=== PATIENT | female | born 1950 | race American Indian/Alaskan Native ===

== ENCOUNTER → 2018-07-10 | Outpatient (CLI) | payer OTHER ==
[~2018-07-10] MED LIST: BENZ0.5T35 PO; DIPH25CA57 PO; DIVA250T4 PO; FLUT1AER IH; LORA2VIA6 IJ; [UNRECOGNIZED DRUG - CODE] MC
[2018-07-10 19:42] LABS: BILIRUBIN,URINE NEGATIVE (NEGATIVE)
[2018-07-10 19:57] LABS: APPEARANCE,URINE CLEAR (CLEAR); UA COLOR AMBER (YELLOW)
== END | disposition home or self-care (01) ==
LOC: LAB 19:02
PROVIDERS: ATTEND Family Medicine
DX: E03.9 Hypothyroidism, unspecified (principal); F25.1 Schizoaffective disorder, depressive type; G20 Parkinson's disease
CPT/HCPCS: 81000; 87086

== ENCOUNTER 2018-07-14 07:26 | Inpatient (IN) | payer MEDICARE, MEDICAID ==
[2018-07-14] VITALS (31 sets, daily range): BP systolic 102–193; BP diastolic 50–116
[~2018-07-14] VITALS: Ht 177.8 cm; Wt 73.9 kg
--- NOTE | 2018-07-14 07:27 | NUR ---
ARRIVAL PT ARRIVED TO ED VIA [facility]. PT AWAKE UPON ARRIVE. PT HAS LONG PSYCH HX, ALONG WITH DEMENTIA. NOT ABLE TO ANSWER QUESTIONS. SPEECH NOT CLEAR. NO RESPIRATORY DISTRESS NOTED. 4X4 DRESSING NOTED TO LACERATION ABOVE RIGHT EYES. DRESSING REMOVED. 2 CM LACERATION NOTED. MINIMAL BLEEDING NOTED AT SITE. ABRASION ASSESSED BEHIND LEFT EAR.
--- NOTE | 2018-07-14 07:39 | ER.PDOC ---
General Chief Complaint: Requesting Medical Care Stated Complaint: FALL Time seen by MD: 07:36 Source: patient Exam Limitations: clinical condition (Dense Dementia) History of Present Illness Initial Comments Patient with dense dementia. custodial patient. Patient with unwitnessed fall, and now with small laceration to forehead. Fdc states that he is more confused than normal. Occurred: this morning Where: longterm Injuries/Pain Location: head Context: Unknown Loss of Consciousness: Unsure Past Medical History Medical History: COPD, parkinson Surgical History: other (unkown) Family History Significant Family History: other (unknown) Social History Smoking: quit greater than 1 year Alcohol Use: none Drug Use: none Reviewed Nursing Reviewed: Vital Signs, Abn. Noted (Tachycardia), Nursing Assessment Review of Systems Constitutional: other (Unable to obtain) Physical Exam Head: Lacerations (small 1.4 cm lac forehead) Eyes: bilateral eye normal inspection, bilateral eye PERRL, bilateral eye EOMI Neck: Non-Tender, Normal Alignment, Normal Inspection Cardiovascular/Respiratory: No JVD, Normal Breath Sounds, Tachycardia, Irregularly Irregular Gastrointestinal: Normal Bowel Sounds, No Organomegaly, No Pulsatile Mass, Non Tender, Soft Back: Normal Inspection, No CVA Tenderness, No Vertebral Tenderness Extremities: No Evidence of Injury, Normal Range of Motion, Non-Tender, No Pedal Edema 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, No Motor/Sensory Deficits, Alert, Normal Mood/Affect, Oriented x 3 Skin: Normal Color, Warm/Dry Keily Coma Score Best Eye Response: (4) Open Spontaneously Best Verbal Response: (2)Incomprehensible Sound Best Motor Response: (5) Localizes to Pain [place] Total: 11 Results/Orders Results/Orders Laboratory Tests Test 07/14/18 07:38 07/14/18 09:24 White Blood Count 9.7 10^3/uL (4.5-11.0) Red Blood Count 5.38 10^6/uL (4.00-5.20) Hemoglobin 16.3 g/dL (12.0-15.0) Hematocrit 49.3 % (36.0-46.0) Mean Corpuscular Volume 91.6 fL (78-100) Mean Corpuscular Hemoglobin 30.3 pg (26-34) Mean Corpuscular Hemoglobin Concent 33.1 g/dL (33-37) Red Cell Distribution Width 14.5 % (11.5-14.5) Platelet Count 109 10^3/uL (150-400) Mean Platelet Volume 10.7 fL (7.8-11.0) Neutrophils (%) (Auto) 66.5 % (41.0-85.0) Lymphocytes (%) (Auto) 14.6 % (24.0-44.0) Monocytes (%) (Auto) 17.4 % (5.0-12.0) Neutrophils # (Auto) 6.4 10^3/uL (1.8-7.7) Lymphocytes # (Auto) 1.4 10^3/uL (1.0-4.8) Monocytes # (Auto) 1.7 10^3/uL (0.3-0.8) Absolute Immature Granulocyte (auto 0.03 10^3 u/L (0-2) Eosinophils % 0.9 % (0.0-5.0) Basophils % 0.3 % (0.0-0.2) Basophils # 0.0 10^3/uL (0.0-0.1) Eosinophil Count 0.1 10^3/uL (0.0-0.2) Prothrombin Time 16.1 SEC (9.8-11.9) Prothrombin Time INR (Non-Therap) 1.6 Activated Partial Thromboplast Time 30.4 SEC (24.67-30.72) Sodium Level 152 mmol/L (132-145) Potassium Level 3.8 mmol/L (3.6-5.2) Chloride Level 111.0 mmol/L (96-109) Carbon Dioxide Level 28.3 mmol/L (20.0-32) Anion Gap 16.5 Blood Urea Nitrogen 48 mg/dL (7-18) Creatinine 1.35 mg/dL (0.59-1.40) Estimated GFR () 47.3 (>/=60) BUN/Creatinine Ratio 35.0 Glucose Level 93 mg/dL (70-110) Calcium Level 10.0 mg/dL (8.4-10.5) Total Bilirubin 2.1 mg/dL (0.2-1.0) Aspartate Amino Transf (AST/SGOT) 36 U/L (0-35) Alanine Aminotransferase (ALT/SGPT) 24 U/L (12-78) Alkaline Phosphatase 88 U/L (50-136) Total Creatine Kinase 93 U/L (26-192) Troponin I 0.02 ng/mL (0.00-0.05) Total Protein 8.8 g/dL (6.4-8.2) Albumin 3.5 g/dL (3.4-5.0) Globulin 5.3 Percent Immature Gran (Cell Imm) 0.30 % (0.00-0.50) Urine Collection Type VOID Urine Color DARK YELLOW (YELLOW) Urine Appearance CLEAR (CLEAR) Urine Bilirubin NEGATIVE MG/DL (NEGATIVE) Urine Ketones NEGATIVE (NEGATIVE) Urine Specific [place] 1.020 (1.005-1.035) Urine pH 5 (5.0-6.0) Urine Protein 15 mg/dL (NEGATIVE) Urine Urobilinogen 8.0 (NEGATIVE) Urine Nitrate NEGATIVE (NEGATIVE) Urine Leukocyte Esterase 25 /uL TRACE (NEGATIVE) Urine Blood NEGATIVE (NEGATIVE) Urine RBC 0-2 RBC/HPF (NONE SEEN) Urine WBC 0-2 WBC/HPF (0-2) Urine Squamous Epithelial Cells RARE #/HPF (FEW) Urine Bacteria NONE SEEN (NONE SEEN) Urine Glucose NORMAL (NEGATIVE) Administered Medications Medications (Trade) Dose Ordered Sig/Sherry Route PRN Reason Start Time Stop Time Status Last Admin Dose Admin Magnesium Sulfate 50 ml @ 50 mls/hr OT ONCE IV 07/14/18 08:30 07/14/18 09:29 DC 07/14/18 08:39 Metoprolol Tartrate (Lopresser) 5 mg STAT STAT IVP 07/14/18 08:05 07/14/18 08:07 DC 07/14/18 08:38 Amiodarone HCl (Cordarone) 150 mg STAT STAT IV 07/14/18 09:02 07/14/18 09:07 DC 07/14/18 10:00 Haloperidol Lactate (Haldol) 5 mg STAT STAT IV 07/14/18 09:37 07/14/18 09:38 DC 07/14/18 09:58 Progress Progress left message for hospitalist Dr Jacques. Discussed with Dr. Jacques. Will admit patient to ICU, and consult Cardiology Departure Time of Disposition: 10:07 Disposition: 09 ADMITTED INPATIENT Impression: Primary Impression: Atrial fibrillation with RVR Additional Impressions: Dementia with behavioral disturbance UTI (urinary tract infection) Condition: Critical Referrals: BELLE JONES (PCP) PRIMARY CARE PROVIDER Duration or Time Spent with Pa: 45 Problem Qualifiers Additional Impressions: Dementia with behavioral disturbance Dementia type: Parkinson's disease Qualified Codes: G20 - Parkinson's disease; F02.81 - Dementia in other diseases classified elsewhere with behavioral disturbance UTI (urinary tract infection) Urinary tract infection type: acute cystitis Hematuria presence: without hematuria Qualified Codes: N30.00 - Acute cystitis without hematuria BRIDGETT FARRIS DO Jul 14, 2018 07:38
[2018-07-14 07:44] LABS: BASOPHIL % 0.3 % (0.0-0.2); EOSINOPHIL # 0.1 10^3/uL (0.0-0.2); EOSINOPHIL % 0.9 % (0.0-5.0); HEMOGLOBIN 16.3 g/dL (12.0-15.0); LYMPHOCYTES # 1.4 10^3/uL (1.0-4.8); LYMPHOCYTES % 14.6 % (24.0-44.0); MEAN CELL HGB 30.3 pg (26-34); MEAN CELL HGB CONCENTRATION 33.1 g/dL (33-37); MEAN CORP VOLUME 91.6 fL (78-100); MEAN PLATELET VOLUME 10.7 fL (7.8-11.0); MONOCYTES # 1.7 10^3/uL (0.3-0.8); MONOCYTES % 17.4 % (5.0-12.0); NEUTROPHIL # 6.4 10^3/uL (1.8-7.7); NEUTROPHILS % 66.5 % (41.0-85.0); RED CELL DISTRIBUTION WIDTH 14.5 % (11.5-14.5); WHITE BLOOD CELL 9.7 10^3/uL (4.5-11.0)
--- NOTE | 2018-07-14 07:49 | PCM.EKG ---
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
--- NOTE | 2018-07-14 07:51 | NUR ---
CT PT TAKEN TO CT VIA STRETCHER
--- NOTE | 2018-07-14 07:57 | NUR ---
CT PT BACK FROM CT
[2018-07-14] MEDS ORDERED: LACTATED RINGERS 1,000 ML IV STA (08:05)
[2018-07-14] MEDS ORDERED: LOPRESSER IVP STA (08:05)
--- NOTE | 2018-07-14 08:06 | DIREP ---
PROCEDURE:CHEST 1 VIEW COMPARISON:None. INDICATIONS:fall FINDINGS: LUNGS/PLEURA:No significant pulmonary parenchymal abnormalities. No effusions. VASCULATURE:Normal. Unremarkable pulmonary vasculature. CARDIAC:Normal. No cardiac silhouette abnormality or cardiomegaly. MEDIASTINUM:Normal. No visible mass or adenopathy. BONES:Normal. No fracture or visible bony lesion. OTHER:Negative. CONCLUSION:Normal examination. Dictated by: Mike Rodríguez MD on 07/14/2018 at 08:04 AM
[2018-07-14 08:07] LABS: CARBON DIOXIDE 28.3 mmol/L (20.0-32)
--- NOTE | 2018-07-14 08:07 | DIREP ---
PROCEDURE:CT HEAD OR BRAIN W/O CONTRAST COMPARISON:None. INDICATIONS:fall TECHNIQUE:CT images were created without intravenous contrast. FINDINGS: VENTRICLES:There is severe prominence of the ventricles and cortical sulci consistent with age related involutional changes. CEREBRUM:Small foci of diminished attenuation in the supratentorial white matter consistent with mild leukoaraiosis. CEREBELLUM:Negative. BRAINSTEM:Negative. BASAL CISTERNS:Negative. HEMORRHAGE:No MASS LESION:No ACUTE INFARCT:No SKULL:Normal. SINUSES:Normal. OTHER:None CONCLUSION:Diffuse atrophy, advanced for age. No acute intracranial findings Dictated by: Mike Rodríguez MD on 07/14/2018 at 08:05 AM
[2018-07-14] MEDS ORDERED: ATIVAN ONE (08:21)
[2018-07-14] MEDS ORDERED: NS 1000ML 1,000 ML ONE (08:27)
[2018-07-14] MEDS ORDERED: LOPRESSER ONE (08:27)
[2018-07-14] MEDS ORDERED: LACTATED RINGERS 1,000 ML ONE (08:29)
[2018-07-14] MEDS ORDERED: MAGNESIUM SULFATE 50 ML IV ONE ×2 (08:29→08:30)
[2018-07-14] MEDS ORDERED: CORDARONE IV STA (09:02)
--- NOTE | 2018-07-14 09:14 | NUR ---
DR CARVAJAL MS WAS LEFT FOR DR CARVAJAL TO CALL THE ED BACK
[2018-07-14 09:27] LABS: BILIRUBIN,URINE NEGATIVE (NEGATIVE)
[2018-07-14] MEDS ORDERED: CORDARONE IV ONE ×2 (09:30)
[2018-07-14] MEDS ORDERED: HALDOL ONE (09:35)
[2018-07-14] MEDS ORDERED: HALDOL IV STA ×3 (09:37→23:39)
[2018-07-14 09:39] LABS: APPEARANCE,URINE CLEAR (CLEAR); UA COLOR DARK YELLOW (YELLOW)
[2018-07-14] MEDS ORDERED: CORDARONE ONE (09:56)
[2018-07-14] MEDS ORDERED: ROCEPHIN 1,000 MG in NS 100ML 100 ML IV STA (09:58)
--- NOTE | 2018-07-14 09:59 | NUR ---
DR ALENA FARRIS ON PHONE WITH DR CARVAJAL
[2018-07-14] MEDS ORDERED: DUONEB 0.5 MG-3 MG/3 ML SOLN IH PRN (10:00)
[2018-07-14] MEDS ORDERED: LORA2VIA6 IJ ×2 (10:18→10:59)
[2018-07-14] MEDS ORDERED: NEXTERONE 360 MG/200 ML BAG 200 ML IV SCH ×2 (11:00)
[2018-07-14] MEDS ORDERED: ROCEPHIN ONE (11:14)
[2018-07-14] MEDS ORDERED: NS 100ML 100 ML IV ONE (11:14)
[2018-07-14] MEDS ORDERED: DIVA250T4 PO (11:15)
[2018-07-14] MEDS ORDERED: FLUT1AER IH (11:15)
[2018-07-14] MEDS ORDERED: BENZ0.5T35 PO (11:15)
[2018-07-14] MEDS ORDERED: [UNRECOGNIZED DRUG - CODE] MC (11:15)
[2018-07-14] MEDS ORDERED: DIPH25CA57 PO (11:15)
[2018-07-14] MEDS ORDERED: NS 1000ML 1,000 ML IV SCH (11:30)
[2018-07-14] MEDS ORDERED: NS 1000ML 1,000 ML IV ONE (11:30)
--- NOTE | 2018-07-14 11:30 | PCM.HP ---
History of Present Illness Hx of Present Illness 67 yo M with PMH of dementia, Parkinson disease and hypothyroid came for a fall at [facility]. He was sent to ED after a fall at [facility] where he was also noticed more confusion than his baseline. In ED, patient was found Afib with rapid ventricular rate of 130s on arrival. He was then treated with amiodarone drip. I saw patient at bedside in ED. He was confused and could not communicate at all. His lab reviewed and I noticed his Na level was significantly elevated to 152. His HR was 80s-110s under amiodarone drip. Pt has Parkinson disease and dementia history but I did not see any cardiac history from the medical records provided from [facility]. Pt medical record from [facility] also showed pt is DNR/DNI. Travel History EBOLA RISK:Travel to/contact w: No Is pt experiencing any Ebola s: No Review of Systems Other Unable to obtain due to altered mental status and dementia Scheduled Benztropine Mesylate (Benztropine Mesylate), 1 TAB PO BID, (Reported) Diphenhydramine Hcl (Benadryl), 1 CAP PO HS, (Reported) Divalproex Sodium (Depakote), 250 MG PO TID, (Reported) Fluphenazine Decanoate (Fluphenazine Decanoate), 1 GM MC DAILY24, (Reported) Scheduled PRN Fluticasone/Vilanterol (Breo Ellipta 100-25 Mcg INH), 1 EACH IH PRN PRN for CONGESTION, (Reported) Lorazepam (Ativan), 2 MG IJ Q6HR PRN for AGITATION, (Reported) Lorazepam (Ativan), 2 MG IJ PRN PRN for AGITATION, (Reported) VTE VTE Risk Score VTE Risk: Score 0-1 = Low Risk (Aggressive mobilization; early ambulation; no VTE prophylaxis required) Score 2: Moderate Risk (Intermittent/Pneumatic Compression Device OR Lovenox/Heparin/Coumadin) Score 3-4: High Risk (Intermittent/Pneumatic Compression Device AND Lovenox/Heparin/Coumadin) Score > or =5: Highest Risk (Intermittent/Pneumatic Compression Device AND Lovenox/Heparin/Coumadin) Exam Vital Signs Vital Signs Date Time Temp Pulse Resp B/P (MAP) Pulse Ox O2 Delivery O2 Flow Rate FiO2 07/14/18 08:38 124 150/101 07/14/18 07:43 18 07/14/18 07:42 98.5 96 Room Air 98.5 General Appearance: moderate distress, Other (Confused and unable to comunicate ) HEENT: Atraumatic Respiratory: Clear to auscultation Cardiovascular: No murmurs, Other (Irregularly irregular heart beat) Abdominal: Soft Extremities: No clubbing, No cyanosis, No edema Skin: No rash, No breakdown, No lesions Psych/Mental Status: Other (Confused) Assessment/Plan Assessment/Plan Problems: (1) Atrial fibrillation with RVR Status: Acute ICD Code: I48.91 - Unspecified atrial fibrillation SNOMED: 065439826255978 (2) Hypernatremia Status: Acute ICD Code: E87.0 - Hyperosmolality and hypernatremia SNOMED: 58321141 (3) Parkinson disease Status: Chronic ICD Code: G20 - Parkinson's disease SNOMED: 22365122 (4) Dementia with behavioral disturbance Status: Acute ICD Code: F03.91 - Unspecified dementia with behavioral disturbance SNOMED: 3796923049146 (5) Bipolar 1 disorder Status: Chronic ICD Code: F31.9 - Bipolar disorder, unspecified SNOMED: 656867369 Plan -Will admit to ICU for close monitor -ED started Amiodarone gtt -Will control HR<110. -Will monitor pt BP. -Will order cardiac Echo. -Will monitor volume condition. -Will give IVF with 1-2 L bolus followed by 125 ml/h -Check urine Cr and Na level for clarification of etiology of hypernatremia -Will give Lovenox for anticoagulant and switch to PO when pt becomes more clear. Problem Qualifiers (1) Dementia with behavioral disturbance: Dementia type: Parkinson's disease Qualified Codes: G20 - Parkinson's disease ; F02.81 - Dementia in other diseases classified elsewhere with behavioral disturbance NOLVIA CARVAJAL MD Jul 14, 2018 11:30
--- NOTE | 2018-07-14 11:30 | NUR ---
Arrival Patient arrived on unit via stretcher to ICU 5. Report received from Jonathan Noonan RN. Assumed care of pt. Patient restless, pulling at bedside monitor lines and pulling gown off. Patient confused and unable to comprehend use of call light at this time. Will continue to monitor.
--- NOTE | 2018-07-14 12:00 | NUR ---
Dr. Sawyer Jacques at bedside. New order received to administer Amiodarone drip per protocol and to keep patient NPO due to altered mental status. RBVO Dr. Jacques notified of patients restlessness and pulling at lines, no new orders received.
--- NOTE | 2018-07-14 15:10 | NUR ---
Status Dr. Jacques notified of patient pulling at all bedside monitor lines, beach catheter, and gown off. New order received to place patient to a 1:1. RBVO.
[2018-07-14] MEDS ORDERED: GEODON IM STA (15:16)
--- NOTE | 2018-07-14 15:45 | NUR ---
Dr. Jacques Clarified with physician that sodium was 152. Fluid order to remain the same.
[2018-07-14] MEDS ORDERED: ZYPREXA IM ONE (16:00)
[2018-07-14 16:29] LABS: CALCIUM 9.4 mg/dL (8.4-10.5); CARBON DIOXIDE 24.8 mmol/L (20.0-32)
[2018-07-14] MEDS: HNS 1000ML 1,000 ML IV SCH (17:30)
--- NOTE | 2018-07-14 18:40 | NUR ---
BEDSIDE REPORT RECEIVED FROM HARPAL KILGORE. PATIENT LYING IN BED. NONVERBAL AT PRESENT. RESPIRATIONS UNLABORED ON ROOM AIR. PATIENT CURRENTLY ON AMIODARONE IV DRIP AT 33ML/HR VIA PUMP AND HNS @ 125 CC/HR VIA PUMP. IV PATENT TO RIGHT AC. CONTINUOUS MONITORING OF VITAL SIGNS IN PROGRESS. PATIENT CURRENTLY IN AFIB. PATIENT RESTLESS IN BED. MOVING FREQUENTLY. BRUNER PRESENT AND SECURED TO RIGHT THIGH. URINE IS DARK BROCK IN COLOR. PATIENT REQUIRING 1:1 NURSING CARE DUE TO RESTLESSNESS AND COMBATIVE BEHAVIOR. PATIENT FREQUENTLY PULLING AT LEADS, BRUNER AND IV LINE. PATIENT RAISING OUT OF BED AND LEANING OVER SIDE RAILS. PATIENT ACTIVITY LEVEL IS EXCLUDED DUE TO AMIODARONE DRIP. WILL CONTINUE TO MONITOR PATIENT.
[2018-07-14] MEDS ORDERED: FLUP5TAB PO (19:52)
[2018-07-14] MEDS ORDERED: LORA1TAB PO (19:52)
[2018-07-14] MEDS ORDERED: HALO100A3 IM (19:52)
[2018-07-14] MEDS ORDERED: BISO1TAB44 PO (19:52)
[2018-07-14] MEDS ORDERED: HALO10TA PO (19:52)
[2018-07-14] MEDS ORDERED: LISI-410 PO (19:52)
[2018-07-14] MEDS ORDERED: ACET500T73 PO (19:52)
[2018-07-14] MEDS ORDERED: LOPE2CAP94 PO (19:52)
[2018-07-14] MEDS ORDERED: LORA10TA3 PO (19:52)
[2018-07-14 20:28] LABS: CALCIUM 9.2 mg/dL (8.4-10.5); CARBON DIOXIDE 23.3 mmol/L (20.0-32)
--- NOTE | 2018-07-14 20:40 | NUR ---
CALL PLACED TO DR CARVAJAL. INFORMED DR OF PATIENT BP READINGS 176/104, 167/109, 175/106.80/98 ETC. PATIENT REMAINS ON AMIODARONE DRIP. HEART RATE IS 93-94. PATIENT REMAINS VERY RESTLESS, PULLING AT WIRES, BRUNER ETC. ORDERS RECEIVED FOR LABETALOL 20MG IV Q6HRS PRN HYPERTENSION, HALOPERIDOL 5MG IM AT HS AND PRN. INFORMED DR CARVAJAL PATIENT HOME MEDS IN COMPUTER AND PATIENT ON LORAZEPAM, LISINOPRIL, HALDOL, DEPAKOTE, COGENTIN. DR CARVAJAL STATES HE IS AWARE BUT THAT THE PATIENT IS CONFUSED AND UNABLE TO SWALLOW AT PRESENT. REQUESTED IF PATIENT COULD POSSIBLY HAVE ATIVAN AND MD STATED "NO ATIVAN WILL NOT WORK. IT WILL MAKE IT WORSE." DR CARVAJAL STATED HE ORDERED A BRUNER AND A UA WITH THE BRUNER INSERTION. INFORMED DR THAT BRUNER WAS INSERTED AND PT HAD 750 OUT. NO UA WAS REPEATED. PATIENT HAD ORIGINAL UA THAT WAS CLEAR. DR CARVAJAL REQUESTED ADDITIONAL UA FROM BRUNER NOW. DR CARVAJAL ASKED RE: BMP THAT WAS ORDERED RECENTLY. HE WAS INFORMED IT WAS DRAWN. HE STATED HE WOULD BE CALLING LATER FOR RESULTS.
[2018-07-14] MEDS ORDERED: CORDARONE PO SCH (21:00)
[2018-07-14] MEDS ORDERED: HALDOL IM PRN ×2 (21:00→21:30)
[2018-07-14] MEDS: LOVENOX SQ SCH (21:02)
[2018-07-14] MEDS: TRANDATE IV PRN (21:05)
--- NOTE | 2018-07-14 22:00 | NUR ---
PATIENT EXTREMELY AGITATED. PULLING AT LEADS, BRUNER, IVS, ATTEMPTING TO PINCH NURSES, ATTEMPTING TO HIT, THROWING LEGS OVER THE SIDE RAILS, CONSTANTLY MOVING. UNABLE TO CALM PATIENT. LABETALOL 20MG IV ADMINISTERED FOR ELEVATED BP. BED BATH GIVEN. PATIENT WITH SMEAR OF BM PRESENT. LEADS CHANGED. LINENS AND GOWN CHANGED.
--- NOTE | 2018-07-14 23:15 | NUR ---
DR CARVAJAL NOTIFIED BY PHONE RE: PATIENTS AGITATION. PATIENT EXTREMELY COMBATIVE, PINCHING, SWINGING, PULLING OFF HIS GOWN, PUTTING HIS LEGS OVER THE SIDE RAILS, PULLING OFF THE LEADS, PULLING AT THE BRUNER ETC. TO RECEIVED FOR HALOPERIDOL 10MG IV X1. WILL ASSESS IF EFFECTIVE. DR CARVAJAL STATES THAT PATIENT IS BIPOLAR AND SCHIZOPHRENIC AND IS ON MULTIPLE PSYCH MEDICATIONS SO THEREFORE DIFFICULT TO TREAT THE AGITATION AT TIMES.
[2018-07-15] VITALS (106 sets, daily range): BP systolic 126–203; BP diastolic 51–120
--- NOTE | 2018-07-15 00:05 | NUR ---
DR CARVAJAL CALLED TO CHECK ON PATIENT STATUS. INFORMED OF PATIENT SOME CALMER BUT CONTINUES TO BE RESTLESS. NO NEW ORDERS RECEIVED.
--- NOTE | 2018-07-15 00:19 | NUR ---
PATIENT WITH LESS AGITATION BUT CONTINUES TO MOVE FREQUENTLY IN BED. UNABLE TO KEEP LEADS ON DUE TO PATIENT FREQUENTLY PULLING LEADS OFF.
--- NOTE | 2018-07-15 00:19 | NUR ---
RECEIVED MESSAGE FROM DR CARVAJAL THAT IF LATER PATIENT NEEDS ADDITIONAL DOSE OF HALDOL 10MG IV PATIENT MAY HAVE PRN DOSAGE.
[2018-07-15] MEDS: HNS 1000ML 1,000 ML IV SCH ×2 (02:27→11:12)
--- NOTE | 2018-07-15 03:27 | NUR ---
PATIENT BECOMING INCREASINGLY RESTLESS. SITTING UP IN BED. PULLING AT CORDS. PULLING AT CATHETER. GARBLING FREQUENTLY. PUSHES NURSE AWAY. LIES DOWN THEN SITS BACK UP. KICKING LEGS FREQUENTLY. DIFFICULT TO SOOTHE PATIENT.
--- NOTE | 2018-07-15 04:11 | NUR ---
PATIENT RESTING AT INTERVALS THEN SITTING UP IN BED. PATIENT WITH AUDIBLE MUCOUS IN THROAT AND RATTLING COUGH BUT LUNG SOUNDS CLEAR. PATIENT WITH PROGRESSIVELY STRONGER COUGH AND CLEARING THROAT WITH EFFECTIVENESS. HEART RATE REMAINS IN THE 90S TO LOW 100'S WITH AMIODARONE DRIP CONTINUING.
--- NOTE | 2018-07-15 05:00 | NUR ---
PATIENT INCREASINGLY RESTLESS. SITTING UP IN BED. PULLING AT BRUNER, PULLING OFF LEADS, YELLING OUT AT NURSE WHEN ATTEMPTING TO GET PATIENT TO LIE BACK DOWN, SCOOTING DOWN TO END OF BED AND HANGING LEGS OVER SIDE OF BED ATTEMPTING TO GET OUT OF BED. 0515 MEDICATED WITH HALDOL 10MG IV X1.
[2018-07-15 05:02] LABS: BILIRUBIN,URINE NEGATIVE (NEGATIVE)
[2018-07-15] MEDS ORDERED: HALDOL IV STA (05:15)
[2018-07-15 05:16] LABS: APPEARANCE,URINE CLEAR (CLEAR); UA COLOR DARK YELLOW (YELLOW)
[2018-07-15 05:25] LABS: BASOPHIL % 0.3 % (0.0-0.2); EOSINOPHIL % 0.3 % (0.0-5.0); HEMOGLOBIN 15.6 g/dL (12.0-15.0); LYMPHOCYTES # 1.2 10^3/uL (1.0-4.8); LYMPHOCYTES % 13.3 % (24.0-44.0); MEAN CELL HGB 30.8 pg (26-34); MEAN CELL HGB CONCENTRATION 33.3 g/dL (33-37); MEAN CORP VOLUME 92.5 fL (78-100); MEAN PLATELET VOLUME 10.8 fL (7.8-11.0); MONOCYTES # 1.5 10^3/uL (0.3-0.8); MONOCYTES % 16.7 % (5.0-12.0); NEUTROPHIL # 6.1 10^3/uL (1.8-7.7); NEUTROPHILS % 69.2 % (41.0-85.0); RED CELL DISTRIBUTION WIDTH 14.6 % (11.5-14.5); WHITE BLOOD CELL 8.8 10^3/uL (4.5-11.0)
[2018-07-15] MEDS: TRANDATE IV PRN ×3 (05:25→15:07)
[2018-07-15 05:44] LABS: CALCIUM 9.4 mg/dL (8.4-10.5); CARBON DIOXIDE 23.9 mmol/L (20.0-32)
--- NOTE | 2018-07-15 06:13 | NUR ---
PATIENT REMAINS RESTLESS BUT IS SOME IMPROVED AFTER ADMINISTRATION OF HALDOL 10MG IV. PATIENT CONTINUES TO SIT UP INTERMITTENTLY AND TO OCCASIONALLY PULL AT THINGS.
--- NOTE | 2018-07-15 06:30 | NUR ---
BEDSIDE REPORT GIVEN TO ONCOMING SHIFT.
--- NOTE | 2018-07-15 06:45 | NUR ---
RECEIVED REPORT FROM Melanie TOMAS RN. [facility].
--- NOTE | 2018-07-15 07:25 | NUR ---
ASSESSMENT/MOBILITY LEVEL ASSESSMENT COMPLETED CHARTED. VSS. PATIENT IN BED RESTING WITH EYES CLOSED. EQUAL CHEST RISE AND FALL. PATIENT MOVING ALL EXTREMITIES FREQUENTLY. HANDS IN MITTENS TO PREVENT FROM PULLING AT WIRES AND IV TUBING. PATIENT TURNING SELF IN BED. 1:1 MONITORING FOR SAFETY. EARLY MOBILITY LEVEL C EXCLUDED DUE TO AMIODARONE DRIP INFUSION. BED IN LOCKED POSITION. SIDE RAILS UP X3.
[2018-07-15] MEDS: LOVENOX SQ SCH (09:00)
--- NOTE | 2018-07-15 09:18 | NUR ---
AWAKE ATTEMPTING TO TAKE OFF MITTENS. INSTRUCTED TO REMAIN CALM ORIENTED TO SURROUNDS PATIENT DID NOT RESPOND VERBALLY. CONTINUES TO FIDGET WITH THE MITTENS AND BLANKETS
--- NOTE | 2018-07-15 09:30 | NUR ---
DISCHARGE PLAN CASE MANAGEMENT VISITED WITH [facility]. 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 DISCHARGE GOAL IS TO RETURN TO [facility] UPON DISCHARGE. CM WILL CONTINUE TO FOLLOW FOR DISCHARGE NEEDS.
--- NOTE | 2018-07-15 09:42 | NUR ---
DR. CARVAJAL @ BEDSIDE ASSESSING PATIENT. NOTIFIED OF PLT 89 NEW ORDERS RECEIVED TO HOLD LOVENOX. STATES HE WILL PLACE ORDER FOR HALDOL PRN Q6-8 HOURS. RBVO.
--- NOTE | 2018-07-15 10:25 | NUR ---
DR. WANG @ BEDSIDE FOR DRIVING SCHOOL INSTRUCTOR CONSULT RT @ BEDSIDE FOR ECHO. PATIENT UNCOOPERATIVE. CONTINUES TO TRY TO SIT UP AND PULL AT WIRES. RT ONLY ABLE TO COMPLETED LIMITED ECHO STUDY. DR. WANG STATES IT IS OKAY. NEW ORDERS RECEIVED FOR ZYPREXA 5MG IM STAT AND DIGOXIN 0.25MG IV STAT. RBVO.
[2018-07-15] MEDS ORDERED: LANOXIN IV STA (10:31)
[2018-07-15] MEDS ORDERED: WATER 20 ML ONE (10:31)
[2018-07-15] MEDS ORDERED: ZYPREXA IM STA (10:32)
--- NOTE | 2018-07-15 11:36 | NUR ---
Dr. Rebecca Fernandez at bedside. New order received to give PO medications. Made aware of NPO status, he stated that it was okay to give them. RBVO.
[2018-07-15] MEDS ORDERED: PROTONIX PO ONE (11:44)
[2018-07-15] MEDS ORDERED: SEROQUEL ONE (11:44)
[2018-07-15] MEDS ORDERED: ALDACTONE ONE (12:04)
[2018-07-15] MEDS ORDERED: ALTACE ONE (12:06)
[2018-07-15] MEDS: PROTONIX PO SCH (12:09)
[2018-07-15] MEDS: ALDACTONE PO SCH (12:09)
[2018-07-15] MEDS: SEROQUEL PO SCH (12:10)
[2018-07-15] MEDS: ALTACE PO SCH (12:15)
[2018-07-15] MEDS ORDERED: COREG ONE (13:08)
[2018-07-15] MEDS: COREG PO SCH ×2 (13:38→20:20)
--- NOTE | 2018-07-15 13:38 | NUR ---
AMIODARONE DRIP STOPPED AT THIS TIME. PO AMIODARONE GIVEN. CRUSHED WITH APPLESAUCE ALONG WITH COREG PER DR. WANG'S ORDERS.
[2018-07-15] MEDS: CORDARONE PO SCH ×2 (13:39→20:21)
--- NOTE | 2018-07-15 14:30 | NUR ---
REMOVED MITTEN AND STARTED PULLING AT IV ATTEMPTING TO GET OUT OF BED. REORIENTED TO SURROUNDINGS. REAPPLIED MITTEN. SPEECH GARBLED.
--- NOTE | 2018-07-15 15:05 | NUR ---
DR. CARVAJAL @ BEDSIDE NEW ORDERS RECEIVED TO D/C IV FLUIDS AND PLACE NGT IF PATIENT IS UNABLE TO TAKE PO MEDICATIONS. NOTIFIED THAT PATIENT WAS ABLE TO TAKE PO MEDICATIONS CRUSHED WITH APPLE SAUCE.
--- NOTE | 2018-07-15 15:26 | NUR ---
ORAL CARE PROVIDED USING SUCTION SWABS.
--- NOTE | 2018-07-15 15:59 | PRM.PN ---
Progress Note Subjective Physician Notes: Pt mentation slightly improved as well as the Na level to 149. However, cardiac echo today showed severe systolic heart failure with LVEF of only 30%. Objective Review IO, Exams,& Results Problems Acute/Active Problems: (1) Dementia with behavioral disturbance (2) UTI (urinary tract infection) Vital Signs Date Time Temp Pulse Resp B/P (MAP) Pulse Ox O2 Delivery O2 Flow Rate FiO2 07/15/18 15:30 97 28 174/106 (128) 93 07/15/18 12:03 Room Air 07/15/18 12:01 97.8 97.8 Intake and Output 07/15/18 07:01 Intake Total 3115 ml Output Total 1950 ml Balance 1165 ml Intake Electrolyte Solution 3115 ml Output Urine Total 1950 ml Laboratory Tests Test 07/14/18 07:38 07/14/18 09:24 07/14/18 16:06 07/14/18 20:04 White Blood Count 9.7 10^3/uL Red Blood Count 5.38 10^6/uL Hemoglobin 16.3 g/dL Hematocrit 49.3 % Mean Corpuscular Volume 91.6 fL Mean Corpuscular Hemoglobin 30.3 pg Mean Corpuscular Hemoglobin Concent 33.1 g/dL Red Cell Distribution Width 14.5 % Platelet Count 109 10^3/uL Mean Platelet Volume 10.7 fL Neutrophils (%) (Auto) 66.5 % Lymphocytes (%) (Auto) 14.6 % Monocytes (%) (Auto) 17.4 % Neutrophils # (Auto) 6.4 10^3/uL Lymphocytes # (Auto) 1.4 10^3/uL Monocytes # (Auto) 1.7 10^3/uL Absolute Immature Granulocyte (auto 0.03 10^3 u/L Eosinophils % 0.9 % Basophils % 0.3 % Basophils # 0.0 10^3/uL Eosinophil Count 0.1 10^3/uL Prothrombin Time 16.1 SEC Prothrombin Time INR (Non-Therap) 1.6 Activated Partial Thromboplast Time 30.4 SEC Sodium Level 152 mmol/L 153 mmol/L 148 mmol/L Potassium Level 3.8 mmol/L 3.7 mmol/L 3.8 mmol/L Chloride Level 111.0 mmol/L 114.0 mmol/L 114.0 mmol/L Carbon Dioxide Level 28.3 mmol/L 24.8 mmol/L 23.3 mmol/L Anion Gap 16.5 17.9 14.5 Blood Urea Nitrogen 48 mg/dL 42 mg/dL 40 mg/dL Creatinine 1.35 mg/dL 1.22 mg/dL 1.16 mg/dL Estimated GFR () 47.3 53.2 56.4 BUN/Creatinine Ratio 35.0 34.0 34.0 Glucose Level 93 mg/dL 121 mg/dL 117 mg/dL Calcium Level 10.0 mg/dL 9.4 mg/dL 9.2 mg/dL Total Bilirubin 2.1 mg/dL Aspartate Amino Transf (AST/SGOT) 36 U/L Alanine Aminotransferase (ALT/SGPT) 24 U/L Alkaline Phosphatase 88 U/L Total Creatine Kinase 93 U/L Troponin I 0.02 ng/mL Total Protein 8.8 g/dL Albumin 3.5 g/dL Globulin 5.3 Percent Immature Gran (Cell Imm) 0.30 % Urine Collection Type VOID Urine Color DARK YELLOW Urine Appearance CLEAR Urine Bilirubin NEGATIVE MG/DL Urine Ketones NEGATIVE Urine Specific [place] 1.020 Urine pH 5 Urine Protein 15 mg/dL Urine Urobilinogen 8.0 Urine Nitrate NEGATIVE Urine Leukocyte Esterase 25 /uL TRACE Urine Blood NEGATIVE Urine RBC 0-2 RBC/HPF Urine WBC 0-2 WBC/HPF Urine Squamous Epithelial Cells RARE #/HPF Urine Bacteria NONE SEEN Urine Glucose NORMAL Test 07/15/18 00:00 07/15/18 04:41 07/15/18 10:58 Urine Collection Type UNKNOWN Urine Color DARK YELLOW Urine Appearance CLEAR Urine Bilirubin NEGATIVE MG/DL Urine Ketones 5 mg/dL Urine Specific [place] 1.020 Urine pH 5 Urine Protein 100 mg/dL Urine Urobilinogen 8.0 Urine Nitrate NEGATIVE Urine Leukocyte Esterase 100/ul 1+ Urine Blood 50 2+ Urine RBC TNTC RBC/HPF Urine WBC 0-2 WBC/HPF Urine Squamous Epithelial Cells RARE #/HPF Urine Bacteria NONE SEEN Urine Hyaline Casts 0-1 Urine Glucose NORMAL White Blood Count 8.8 10^3/uL Red Blood Count 5.06 10^6/uL Hemoglobin 15.6 g/dL Hematocrit 46.8 % Mean Corpuscular Volume 92.5 fL Mean Corpuscular Hemoglobin 30.8 pg Mean Corpuscular Hemoglobin Concent 33.3 g/dL Red Cell Distribution Width 14.6 % Platelet Count 89 10^3/uL Mean Platelet Volume 10.8 fL Neutrophils (%) (Auto) 69.2 % Lymphocytes (%) (Auto) 13.3 % Monocytes (%) (Auto) 16.7 % Neutrophils # (Auto) 6.1 10^3/uL Lymphocytes # (Auto) 1.2 10^3/uL Monocytes # (Auto) 1.5 10^3/uL Absolute Immature Granulocyte (auto 0.02 10^3 u/L Eosinophils % 0.3 % Basophils % 0.3 % Basophils # 0.0 10^3/uL Eosinophil Count 0.0 10^3/uL Sodium Level 149 mmol/L Potassium Level 3.5 mmol/L Chloride Level 113.0 mmol/L Carbon Dioxide Level 23.9 mmol/L Anion Gap 15.6 Blood Urea Nitrogen 35 mg/dL Creatinine 1.08 mg/dL Estimated GFR () 61.2 BUN/Creatinine Ratio 32.0 Glucose Level 94 mg/dL Calcium Level 9.4 mg/dL Total Bilirubin 2.1 mg/dL Aspartate Amino Transf (AST/SGOT) 36 U/L Alanine Aminotransferase (ALT/SGPT) 19 U/L Alkaline Phosphatase 73 U/L Troponin I 0.04 ng/mL 0.04 ng/mL Total Protein 7.8 g/dL Albumin 3.2 g/dL Globulin 4.6 Percent Immature Gran (Cell Imm) 0.20 % Magnesium Level 1.6 mg/dL Pro-B-Type Natriuretic Peptide 5305 pg/mL Current Medications Medications (Trade) Dose Ordered Sig/Sherry PRN Reason Start Time Stop Time Status Last Admin Albuterol/ Ipratropium (Duoneb 0.5 Mg-3 Mg/3 ml Soln) 3 ml Q8 PRN COPD 07/14/18 10:00 08/13/18 09:59 07/15/18 00:38 Amiodarone HCl (Cordarone) 200 mg BID 07/15/18 14:00 08/14/18 13:59 07/15/18 13:39 Amiodarone HCL/ Dextrose 200 ml @ 17 mls/hr IV 07/14/18 11:00 08/13/18 10:59 07/15/18 04:06 Amiodarone HCL/ Dextrose 200 ml @ 34.001 mls/ hr OT 07/14/18 11:00 08/13/18 10:59 07/14/18 13:38 Atorvastatin Calcium (Lipitor) 40 mg HS 07/15/18 21:00 08/14/18 20:59 Carvedilol (Coreg) 6.25 mg BID 07/15/18 21:00 08/14/18 20:59 07/15/18 13:38 Digoxin (Lanoxin) 125 mcg DAILY 07/16/18 09:00 08/15/18 08:59 Enoxaparin Sodium (Lovenox) 70 mg BID 07/14/18 21:00 08/13/18 20:59 Future Hold 07/14/18 21:02 Haloperidol Lactate (Haldol) 5 mg HS PRN AGITATION 07/14/18 21:30 08/13/18 21:29 Haloperidol Lactate (Haldol) 10 mg Q8HR PRN AGITATION 07/15/18 10:30 08/14/18 10:29 Labetalol HCl (Trandate) 20 mg Q6 PRN HYPERTENSION 07/14/18 21:00 08/13/18 20:59 07/15/18 15:07 Pantoprazole Sodium (Protonix) 40 mg DAILY 07/16/18 09:00 08/15/18 08:59 07/15/18 12:09 Quetiapine Fumarate (Seroquel) 100 mg DAILY 07/16/18 09:00 08/15/18 08:59 07/15/18 12:10 Ramipril (Altace) 10 mg DAILY 07/16/18 09:00 08/15/18 08:59 07/15/18 12:15 Spironolactone (Aldactone) 12.5 mg DAILY 07/16/18 09:00 08/15/18 08:59 07/15/18 12:09 Orders - NOLVIA CARVAJAL MD Admit Orders (07/14/18 15:27) Resuscitation Status (07/14/18 16:28) Place Gómez Catheter (07/14/18 17:06) Malnutrition Screening (07/14/18 18:15) Haloperidol Lactate (Haldol) (07/15/18 10:30) Basic Metabolic Panel (07/16/18 05:00) Cbc With Auto Diff (07/16/18 05:00) Insert Ng Tube (07/15/18 14:55) Heart: No murmurs, Other (Irregularly irregular heart beat) Abdomen: Soft Lungs: Clear to auscultation Assessment & Plan: Assessment (1) Atrial fibrillation with RVR Status: Acute ICD Code: I48.91 - Unspecified atrial fibrillation SNOMED: 911073934429794 (2) Hypernatremia Status: Acute ICD Code: E87.0 - Hyperosmolality and hypernatremia SNOMED: 13098097 (3) Parkinson disease Status: Chronic ICD Code: G20 - Parkinson's disease SNOMED: 21607545 (4) Dementia with behavioral disturbance Status: Acute ICD Code: F03.91 - Unspecified dementia with behavioral disturbance SNOMED: 2093343274795 (5) Bipolar 1 disorder Status: Chronic ICD Code: F31.9 - Bipolar disorder, unspecified SNOMED: 881019039 (6) CHF systolic EF 30% on echo today Plans: -Pt mentation slightly improved. -Na came down to 149. -Echo done today showed LVEF 30%, started CHF meds per cardiology -Held Lovenox due to hematuria -HR better controlled and most of time <100. -Pt pronosis is guarded given severe CHF. NOLVIA CARVAJAL MD Jul 15, 2018 15:59
[2018-07-15] MEDS: HALDOL IV PRN (17:09)
--- NOTE | 2018-07-15 17:10 | NUR ---
PATIENT ATTEMPTING TO GET OUT OF BED. AGITATED UNABLE TO SOOTHE. REPOSITIONED IN BED. PATIENT CONTINUES TO TRY TO SWING LEGS OVER SIDE RAILS. ADMINISTERED HALDOL ORDERED PRN.
--- NOTE | 2018-07-15 18:22 | NUR ---
BP 182/92 READJUSTED CUFF BP 167/[address] WANG OF BP AND MEDICATIONS THAT HAVE BEEN GIVEN FOR BP. NEW ORDERS RECEIVED FOR HYDRALAZINE 10MG IV Q2HR PRN FOR BP 170/90 AND ABOVE. RBTO.
[2018-07-15] MEDS: APRESOLINE IV PRN (18:33)
--- NOTE | 2018-07-15 18:48 | NUR ---
Report. Received bedside report assumed care of patient. Patient resting in bed with eyes closed at this time. Resp even nonlabored. Side rales up x3.
--- NOTE | 2018-07-15 18:48 | NUR ---
REPORT GIVEN TO ONCOMING SHIFT. RELINQUISHED CARE.
--- NOTE | 2018-07-15 19:15 | NUR ---
Early mobility Patient excluded due to being on bedrest.
--- NOTE | 2018-07-15 19:59 | NUR ---
agitation Increased agitation noted. Patient swatting at staff. Attempts to redirect patient unsuccessful. Behavior modification is being attempted with low light low stimuli environment. Will continue to monitor.
[2018-07-15] MEDS: LIPITOR PO SCH (20:20)
--- NOTE | 2018-07-15 20:33 | NUR ---
evening medication Patient took medications with no difficulty swallowing. decreased agitation noted.
--- NOTE | 2018-07-15 21:08 | NUR ---
Haldol Haldol given for increased agitation and anxiety.
--- NOTE | 2018-07-15 22:30 | NUR ---
ALISHA BATH GIVEN
--- NOTE | 2018-07-15 23:00 | NUR ---
Decreased agitation Patient resting in bed at this time relaxed no agitation noted. will continue to monitor.
[2018-07-16] VITALS (96 sets, daily range): BP systolic 73–198; BP diastolic 30–130
--- NOTE | 2018-07-16 01:00 | NUR ---
oral care Oral care provided. mouth moisturized.
--- NOTE | 2018-07-16 05:00 | NUR ---
Lab Engineering Team Supervisor at bedside to drawl morning labs.
[2018-07-16 05:09] LABS: BASOPHIL % 0.4 % (0.0-0.2); EOSINOPHIL % 0.2 % (0.0-5.0); LYMPHOCYTES % 11.4 % (24.0-44.0); MEAN CELL HGB 30.9 pg (26-34); MEAN CELL HGB CONCENTRATION 33.7 g/dL (33-37); MEAN CORP VOLUME 91.8 fL (78-100); MEAN PLATELET VOLUME 10.2 fL (7.8-11.0); MONOCYTES # 1.4 10^3/uL (0.3-0.8); NEUTROPHIL # 5.9 10^3/uL (1.8-7.7); NEUTROPHILS % 70.6 % (41.0-85.0); RED CELL DISTRIBUTION WIDTH 14.6 % (11.5-14.5); WHITE BLOOD CELL 8.3 10^3/uL (4.5-11.0)
[2018-07-16 05:21] LABS: CALCIUM 8.8 mg/dL (8.4-10.5); CARBON DIOXIDE 25.3 mmol/L (20.0-32)
--- NOTE | 2018-07-16 07:42 | NUR ---
Report Report received from Masha ROWAN at the bedside. Shift change. Patient 1:1. Sleeping upon first contact, has started to awaken. Patient wearing Pillow cases around hands, arms are not secured down; Patient has full mobility. Patient has a rash to the groin noted. Some small Bruises to shins, A Laceration to right forehead.
[2018-07-16] MEDS ORDERED: POTASSIUM CHLORIDE PO STA (07:52)
[2018-07-16] MEDS ORDERED: MAGNESIUM-D5W 1 GM/100 ML SOLN 100 ML IV ONE ×2 (08:00→11:33)
[2018-07-16] MEDS ORDERED: D51/4NS 500ML 500 ML IV SCH (08:30)
[2018-07-16] MEDS ORDERED: LANOXIN IV SCH (09:00)
[2018-07-16] MEDS: COREG PO SCH ×2 (09:03→21:09)
[2018-07-16] MEDS: ALDACTONE PO SCH (09:04)
[2018-07-16] MEDS: SEROQUEL PO SCH (09:05)
[2018-07-16] MEDS: PROTONIX PO SCH (09:05)
[2018-07-16] MEDS: CORDARONE PO SCH ×2 (09:05→21:08)
[2018-07-16] MEDS: ALTACE PO SCH (09:06)
[2018-07-16] MEDS: DEXTROSE 5%-SOD CHLORIDE 0.2% 1,000 ML IV SCH (09:30)
--- NOTE | 2018-07-16 09:42 | DIET.OP ---
Nutrition Asmt/Malnutrit 2-17 Nutritional Screening: Malnutr/Diet Consult Diagnosis: Fall Pertinent Medical Hx/Surgical: Per MD: dementia, Parkinson disease and hypothyroid Subjective Information: Patient has been very aggitated. Has Parkinson's Disease. The patient's weight dropped 6 pounds when weighed on 07/14/18 compared to 07/15/18. Unsure of the accuracy of this measurement at this time. Patient NPO status because of history of dysphagia. RN reported that he was able to consume a small amount of applesauce and juice this morning. Visible mild/moderate muscle wasting of the temporal and upper body wasting of the Current Diet Order/Nutrition S: NPO Pertinent Meds Current Medications Medications (Trade) Dose Ordered Sig/Sherry PRN Reason Start Time Stop Time Status Last Admin Albuterol/ Ipratropium (Duoneb 0.5 Mg-3 Mg/3 ml Soln) 3 ml Q8 PRN COPD 07/14/18 10:00 08/13/18 09:59 07/15/18 00:38 Amiodarone HCl (Cordarone) 200 mg BID 07/16/18 21:00 08/15/18 20:59 Atorvastatin Calcium (Lipitor) 40 mg HS 07/15/18 21:00 08/14/18 20:59 07/15/18 20:20 Carbidopa/Levodopa (Sinemet 25/100) 1 each BID 07/16/18 21:00 08/15/18 20:59 Carvedilol (Coreg) 12.5 mg BID 07/16/18 21:00 08/15/18 20:59 Haloperidol Lactate (Haldol) 10 mg Q8HR PRN AGITATION 07/15/18 10:30 08/14/18 10:29 07/15/18 17:09 Hydralazine HCl (Apresoline) 10 mg Q2 PRN HYPERTENSION 07/15/18 18:30 08/14/18 18:29 07/15/18 18:33 Labetalol HCl (Trandate) 20 mg Q6 PRN HYPERTENSION 07/14/18 21:00 08/13/18 20:59 07/15/18 15:07 Magnesium Oxide (Mag-Ox) 400 mg BID 07/16/18 21:00 08/15/18 20:59 Pantoprazole Sodium (Protonix) 40 mg DAILY 07/16/18 09:00 2/9/19 08:59 07/16/18 09:05 Quetiapine Fumarate (Seroquel) 150 mg DAILY 07/17/18 09:00 08/16/18 08:59 Ramipril (Altace) 10 mg DAILY 07/16/18 09:00 08/15/18 08:59 07/16/18 09:06 Spironolactone (Aldactone) 12.5 mg DAILY 07/16/18 09:00 08/15/18 08:59 07/16/18 09:04 Pertinent Labs Laboratory Tests 07/16/18 04:45: White Blood Count 8.3, Red Blood Count 4.85, Hemoglobin 15.0, Hematocrit 44.5, Mean Corpuscular Volume 91.8, Mean Corpuscular Hemoglobin 30.9, Mean Corpuscular Hemoglobin Concent 33.7, Red Cell Distribution Width 14.6H, Platelet Count 89L, Mean Platelet Volume 10.2, Neutrophils (%) (Auto) 70.6, Lymphocytes (%) (Auto) 11.4L, Monocytes (%) (Auto) 17.0H, Neutrophils # (Auto) 5.9, Lymphocytes # (Auto) 1.0, Monocytes # (Auto) 1.4H, Absolute Immature Granulocyte (auto 0.03, Eosinophils % 0.2, Basophils % 0.4H, Basophils # 0.0, Eosinophil Count 0.0, Sodium Level 149H, Potassium Level 3.5L, Chloride Level 115.0H, Carbon Dioxide Level 25.3, Glucose Level 102, Blood Urea Nitrogen 30H, Creatinine 1.00, Calcium Level 8.8, Anion Gap 12.2, Estimated GFR () 90.2, BUN/Creatinine Ratio 30.0, Percent Immature Gran (Cell Imm) 0.40 07/16/18 09:54: Prothrombin Time 13.2H, Prothrombin Time INR (Non-Therap) 1.3 Height (Feet): 5 Height (Inches): 7 Current Weight: 152 Usual Weight: 158 %UBW: 96 %IBW: 103 Recent Weight Change: Yes Weight Status: Underweight GI Symptoms: None Food Allergies: No Cultural/Ethnic/Muslim Gege: None reported Current %PO: BEE in Kcals: Use Current Weight Calories/Kcals/Kg: MsJ * 1.2-1.3 Kcals Calculated: 1043-6630 Protein: Use Current Weight Protein g/k.37 g/kg Protein Calculated: 94g Fluid: ml: 5038-4070 Nutritional Problem: Nutr. Problems Present Problems: Inadequate oral food/beverage intake Etiology: NPO status Signs/Symptoms: History of dysphagia Interperation of Weight Loss (: >25 in 1 week Body Fat Depletion (Non Severe: Mild Depletion Muscle Mass (Severe): Mod to Severe Depletion Protein-Calorie Malnutrition: Severe Is there a minimum of two crit: Yes RD Comments: Intervention: 1. Advanced diet to 2 gr Na Low Fat/Low Chol when appropriate 2. Recommend Ensure BID for increased calories and protein if diet is changed Monitor/evaluate 1. Weight Status 2. po intake Expected Outcomes Goal: 1. The patient will consume 100% of meals provided to meet 100% of estimated energy needs over the next 2-3 days Discharge plan: 1. Discharge planning in progress Malnutrtion/Nutrition Risk Edu: Yes Education not given due to patients current mental status and state of agitation. FELA STUBBS RD Jul 16, 2018 09:42
--- NOTE | 2018-07-16 09:46 | NUR ---
Activity Patient had a visit from DR. Fernandez. Awake, alert, trying to verbally express self, nursing able to understand some of what Patient states. Pillowcase removed from left hand, holding a cup of ice. Patient took all of his medications with applesauce., drank his Potassium elixer mixed with orange juice and water. Cooperative with lab draw. Refused mouthcare at this time.
[2018-07-16] MEDS ORDERED: MAGNESIUM SULFATE 50 ML IV ONE (10:00)
--- NOTE | 2018-07-16 11:10 | NUR ---
Blood Pressure Patient BP reading 70s over 40s, BP cuff on left upper arm. Patient has IVF infusing to left peripheral IV. Cuff moved to right forearm. BP retaken 120/74 (90).
[2018-07-16 12:20] LABS: BILIRUBIN,URINE 3 MG/DL (NEGATIVE)
[2018-07-16 12:48] LABS: APPEARANCE,URINE CLEAR (CLEAR); UA COLOR AMBER (YELLOW)
--- NOTE | 2018-07-16 12:53 | NUR ---
medication Order received to give patient potassium 40mEq, elixer. Duplicate order, as dose already given. Patient given an additional 1gram of Mag Sulfate, after order received for a dose of 2 grams came through and patient already received dose of 1gram this morning. Patient will have a total of 25 grams magnesium today. Order received for patient to have D5 1/ NS @50cc/hr. 500 CC bag hanging, this RN will finish this bag prior to starting 1000ml bag.
--- NOTE | 2018-07-16 12:59 | NUR ---
Activity Patient repositioned to left side using a pillow, promptly scooted back over to back. Sacrum and butt assessed intact, no evidence of DTI. No redness noted. Pericare and meatal care completed. Heels floated off mattress using a pillow. Patient tolerated activity moderately well, falling back to sleep one position change complete.
--- NOTE | 2018-07-16 14:40 | NUR ---
RECEIVED REPORT AND PATIENT CARE ASSUMED.
--- NOTE | 2018-07-16 15:21 | PRM.PN ---
Progress Note Subjective Physician Notes: Pt mental status showed improvement today. He could speak simple sentence sometimes but he is lethargic most of the time. He can take PO pills now. His HR came down to 70-100 and vitals are stable. Objective Review IO, Exams,& Results Problems Acute/Active Problems: (1) Dementia with behavioral disturbance (2) UTI (urinary tract infection) Vital Signs Date Time Temp Pulse Resp B/P (MAP) Pulse Ox O2 Delivery O2 Flow Rate FiO2 07/16/18 14:00 91 19 113/67 (82) 94 07/16/18 12:29 97.7 Room Air 97.7 07/16/18 08:31 21 Intake and Output 07/16/18 07:01 Intake Total 1377 ml Output Total 930 ml Balance 447 ml Electrolyte Solution 1377 ml Output Urine Total 930 ml Laboratory Tests Test 07/14/18 16:06 07/14/18 20:04 07/15/18 00:00 07/15/18 04:41 Sodium Level 153 mmol/L 148 mmol/L 149 mmol/L Potassium Level 3.7 mmol/L 3.8 mmol/L 3.5 mmol/L Chloride Level 114.0 mmol/L 114.0 mmol/L 113.0 mmol/L Carbon Dioxide Level 24.8 mmol/L 23.3 mmol/L 23.9 mmol/L Glucose Level 121 mg/dL 117 mg/dL 94 mg/dL Blood Urea Nitrogen 42 mg/dL 40 mg/dL 35 mg/dL Creatinine 1.22 mg/dL 1.16 mg/dL 1.08 mg/dL Calcium Level 9.4 mg/dL 9.2 mg/dL 9.4 mg/dL Anion Gap 17.9 14.5 15.6 Estimated GFR () 53.2 56.4 61.2 BUN/Creatinine Ratio 34.0 34.0 32.0 Urine Collection Type UNKNOWN Urine Color DARK YELLOW Urine Appearance CLEAR Urine Bilirubin NEGATIVE MG/DL Urine Ketones 5 mg/dL Urine Specific [place] 1.020 Urine pH 5 Urine Protein 100 mg/dL Urine Urobilinogen 8.0 Urine Nitrate NEGATIVE Urine Leukocyte Esterase 100/ul 1+ Urine Blood 50 2+ Urine RBC TNTC RBC/HPF Urine WBC 0-2 WBC/HPF Urine Squamous Epithelial Cells RARE #/HPF Urine Bacteria NONE SEEN Urine Hyaline Casts 0-1 Urine Glucose NORMAL White Blood Count 8.8 10^3/uL Red Blood Count 5.06 10^6/uL Hemoglobin 15.6 g/dL Hematocrit 46.8 % Mean Corpuscular Volume 92.5 fL Mean Corpuscular Hemoglobin 30.8 pg Mean Corpuscular Hemoglobin Concent 33.3 g/dL Red Cell Distribution Width 14.6 % Platelet Count 89 10^3/uL Mean Platelet Volume 10.8 fL Neutrophils (%) (Auto) 69.2 % Lymphocytes (%) (Auto) 13.3 % Monocytes (%) (Auto) 16.7 % Neutrophils # (Auto) 6.1 10^3/uL Lymphocytes # (Auto) 1.2 10^3/uL Monocytes # (Auto) 1.5 10^3/uL Absolute Immature Granulocyte (auto 0.02 10^3 u/L Eosinophils % 0.3 % Basophils % 0.3 % Basophils # 0.0 10^3/uL Eosinophil Count 0.0 10^3/uL Total Bilirubin 2.1 mg/dL Aspartate Amino Transf (AST/SGOT) 36 U/L Alanine Aminotransferase (ALT/SGPT) 19 U/L Alkaline Phosphatase 73 U/L Troponin I 0.04 ng/mL Total Protein 7.8 g/dL Albumin 3.2 g/dL Globulin 4.6 Percent Immature Gran (Cell Imm) 0.20 % Test 07/15/18 10:58 07/16/18 04:45 07/16/18 09:54 07/16/18 12:00 Magnesium Level 1.6 mg/dL Troponin I 0.04 ng/mL Pro-B-Type Natriuretic Peptide 5305 pg/mL White Blood Count 8.3 10^3/uL Red Blood Count 4.85 10^6/uL Hemoglobin 15.0 g/dL Hematocrit 44.5 % Mean Corpuscular Volume 91.8 fL Mean Corpuscular Hemoglobin 30.9 pg Mean Corpuscular Hemoglobin Concent 33.7 g/dL Red Cell Distribution Width 14.6 % Platelet Count 89 10^3/uL Mean Platelet Volume 10.2 fL Neutrophils (%) (Auto) 70.6 % Lymphocytes (%) (Auto) 11.4 % Monocytes (%) (Auto) 17.0 % Neutrophils # (Auto) 5.9 10^3/uL Lymphocytes # (Auto) 1.0 10^3/uL Monocytes # (Auto) 1.4 10^3/uL Absolute Immature Granulocyte (auto 0.03 10^3 u/L Eosinophils % 0.2 % Basophils % 0.4 % Basophils # 0.0 10^3/uL Eosinophil Count 0.0 10^3/uL Sodium Level 149 mmol/L Potassium Level 3.5 mmol/L Chloride Level 115.0 mmol/L Carbon Dioxide Level 25.3 mmol/L Glucose Level 102 mg/dL Blood Urea Nitrogen 30 mg/dL Creatinine 1.00 mg/dL Calcium Level 8.8 mg/dL Anion Gap 12.2 Estimated GFR () 90.2 BUN/Creatinine Ratio 30.0 Percent Immature Gran (Cell Imm) 0.40 % Prothrombin Time 13.2 SEC Prothrombin Time INR (Non-Therap) 1.3 Urine Collection Type VOID Urine Color BROCK Urine Appearance CLEAR Urine Bilirubin 3 MG/DL Urine Ketones NEGATIVE Urine Specific [place] 1.010 Urine pH 6 Urine Protein 30 mg/dL Urine Urobilinogen 12.0 Urine Nitrate NEGATIVE Urine Leukocyte Esterase 100/ul 1+ Urine Blood 50 2+ Urine RBC 5-10 RBC/HPF Urine WBC 5-10 WBC/HPF Urine Squamous Epithelial Cells FEW #/HPF Urine Bacteria RARE Urine Glucose NORMAL Current Medications Medications (Trade) Dose Ordered Sig/Sherry PRN Reason Start Time Stop Time Status Last Admin Albuterol/ Ipratropium (Duoneb 0.5 Mg-3 Mg/3 ml Soln) 3 ml Q8 PRN COPD 07/14/18 10:00 08/13/18 09:59 07/15/18 00:38 Amiodarone HCl (Cordarone) 200 mg BID 07/16/18 21:00 08/15/18 20:59 Atorvastatin Calcium (Lipitor) 40 mg HS 07/15/18 21:00 08/14/18 20:59 07/15/18 20:20 Carbidopa/Levodopa (Sinemet 25/100) 1 each BID 07/16/18 21:00 08/15/18 20:59 Carvedilol (Coreg) 12.5 mg BID 07/16/18 21:00 08/15/18 20:59 Haloperidol Lactate (Haldol) 10 mg Q8HR PRN AGITATION 07/15/18 10:30 08/14/18 10:29 07/15/18 17:09 Hydralazine HCl (Apresoline) 10 mg Q2 PRN HYPERTENSION 07/15/18 18:30 08/14/18 18:29 07/15/18 18:33 Labetalol HCl (Trandate) 20 mg Q6 PRN HYPERTENSION 07/14/18 21:00 08/13/18 20:59 07/15/18 15:07 Magnesium Oxide (Mag-Ox) 400 mg BID 07/16/18 21:00 08/15/18 20:59 Pantoprazole Sodium (Protonix) 40 mg DAILY 07/16/18 09:00 08/15/18 08:59 07/16/18 09:05 Quetiapine Fumarate (Seroquel) 150 mg DAILY 07/17/18 09:00 08/16/18 08:59 Ramipril (Altace) 10 mg DAILY 07/16/18 09:00 08/15/18 08:59 07/16/18 09:06 Spironolactone (Aldactone) 12.5 mg DAILY 07/16/18 09:00 08/15/18 08:59 07/16/18 09:04 Orders - NOLVIA CARVAJAL MD Admit Orders (07/14/18 15:27) Resuscitation Status (07/14/18 16:28) Place Gómez Catheter (07/14/18 17:06) Malnutrition Screening (07/14/18 18:15) Haloperidol Lactate (Haldol) (07/15/18 10:30) Insert Ng Tube (07/15/18 14:55) Dextrose 5 %-0.2 % Sod Chlorid (Dextrose (07/16/18 09:30) Urine Culture (07/16/18 12:00) Heart: No murmurs, Other (Irregularly irregular heart beat) Abdomen: Soft Lungs: Clear to auscultation Assessment & Plan: Assessment (1) Atrial fibrillation with RVR Status: Acute ICD Code: I48.91 - Unspecified atrial fibrillation SNOMED: 555364912647530 (2) Hypernatremia Status: Acute ICD Code: E87.0 - Hyperosmolality and hypernatremia SNOMED: 13954865 (3) Parkinson disease Status: Chronic ICD Code: G20 - Parkinson's disease SNOMED: 27592458 (4) Dementia with behavioral disturbance Status: Acute ICD Code: F03.91 - Unspecified dementia with behavioral disturbance SNOMED: 7820795873983 (5) Bipolar 1 disorder Status: Chronic ICD Code: F31.9 - Bipolar disorder, unspecified SNOMED: 600015546 (6) CHF systolic EF 30% on echo today Plans: -Pt mentation slightly improved. -Na came down to 149. -Echo done today showed LVEF 30%, started CHF meds per cardiology -Held Lovenox due to hematuria -HR better controlled and most of time <100. -Pt prognosis is guarded given severe CHF. NOLVIA CARVAJAL MD Jul 16, 2018 15:21
[2018-07-16] MEDS: TRANDATE IV PRN (15:48)
--- NOTE | 2018-07-16 15:48 | NUR ---
HR UP TO 115 LABETALOL GIVEN ORDERED SEE EMAR.
[2018-07-16] MEDS: HALDOL IV PRN (15:56)
--- NOTE | 2018-07-16 15:56 | NUR ---
AGITATION/PULLING AT IV LINES AND TELEMONITOR HALDOL 10MG IV GIVEN ORDERED.
--- NOTE | 2018-07-16 16:51 | NUR ---
DR. CARVAJAL NOTIFIED OF PATIENT ATTEMPTING TO GET OUT OF BED AND PULLING AT TELEMONITOR AND IV LINE. hALDOL 10MG IV GIVEN WITH NO CHANGE IN BEHAVIOR. TELEPHONE ORDER TO RESUME PSYCHO MEDICATION DEPAKOTE 250MG PO THREE TIMES A DAY, FLUPHENAZINE 5MG PO TWICE A DAY, AND HALDOL 10MH PO AT BEDTIME. ALSO MAY GIVE ZYPREXA 10MG IM OT ONLY 3 TO 4 HOURS APART FROM HALDOL.
[2018-07-16] MEDS ORDERED: ZYPREXA IM ONE (17:30)
--- NOTE | 2018-07-16 18:40 | NUR ---
Report Received report assumed care of patient. Patient trying to climb out of bed during bedside report. Patient unable to be redirected. Will continue to monitor.
--- NOTE | 2018-07-16 20:05 | NUR ---
gary bath given
[2018-07-16] MEDS ORDERED: PROLIXIN PO SCH (21:00)
[2018-07-16] MEDS: SINEMET 25/100 PO SCH (21:08)
[2018-07-16] MEDS: LIPITOR PO SCH (21:08)
[2018-07-16] MEDS: MAG-OX PO SCH (21:08)
[2018-07-16] MEDS: ELIQUIS PO SCH (21:08)
[2018-07-16] MEDS: DEPAKOTE EC PO SCH (21:34)
--- NOTE | 2018-07-16 21:43 | NUR ---
Early mobility Patient excluded due to being on bedrest.
--- NOTE | 2018-07-16 21:44 | NUR ---
Fluphenazine Med not given. Med is not available in facility. Charge nurse and dye house helper notified.
--- NOTE | 2018-07-16 22:32 | PNH ---
DATE: 07/16/2018 SUBJECTIVE: The patient is doing much better and atrial fibrillation controlled with rapid ventricular response of 110. IV amiodarone and is completed. OBJECTIVE: VITAL SIGNS: Temperature is normal, respirations 20, 138/80 blood pressure, 91 saturation on room air. NECK: No JVD. LUNGS: Show much improved air entry. HEART: Sounds normal is able. He is able to swallow all his medications. His platelet count is 89,000, which is stable, which is probably not a contraindication to give him Eliquis. He has got adequate hemostasis with his INR is 1.6 may be nutritional issue. His BNP was 5305. Magnesium was 1.6. His cardiopulmonary exam is unremarkable. IMPRESSION: Cardiomyopathy, chronic systolic heart failure, atrial fibrillation with rapid ventricular response, hypertension, hypertensive heart disease, Parkinson disease and schizophrenia and bipolar disorder. PLAN: At this time, continue same therapy, optimize CHF therapy and add Sinemet for his extrapyramidal symptoms and we will start him on low dose Eliquis at the present time. Laxmichand MD Rebecca DR: BLOSSOM/samanta JOB# [id number]
[2018-07-17] VITALS (39 sets, daily range): BP systolic 53–184; BP diastolic 20–116
--- NOTE | 2018-07-17 02:00 | NUR ---
agitation while repositioning patient, patient became combative swinging fist at staff and hitting staff. haldol 10mg IM given will continue to monitor.
[2018-07-17] MEDS: HALDOL IV PRN ×2 (02:50→11:10)
[2018-07-17 05:05] LABS: BASOPHIL % 0.4 % (0.0-0.2); EOSINOPHIL # 0.1 10^3/uL (0.0-0.2); EOSINOPHIL % 0.7 % (0.0-5.0); HEMOGLOBIN 15.1 g/dL (13.9-16.3); LYMPHOCYTES # 1.2 10^3/uL (1.0-4.8); LYMPHOCYTES % 14.1 % (24.0-44.0); MEAN CELL HGB 31.1 pg (26-34); MEAN CORP VOLUME 91.5 fL (78-100); MEAN PLATELET VOLUME 10.1 fL (7.8-11.0); MONOCYTES # 1.3 10^3/uL (0.3-0.8); MONOCYTES % 15.7 % (5.0-12.0); NEUTROPHIL # 5.8 10^3/uL (1.8-7.7); NEUTROPHILS % 68.7 % (41.0-85.0); RED CELL DISTRIBUTION WIDTH 14.7 % (11.5-14.5); WHITE BLOOD CELL 8.4 10^3/uL (4.5-11.0)
[2018-07-17 05:30] LABS: CALCIUM 8.9 mg/dL (8.4-10.5); CARBON DIOXIDE 26.5 mmol/L (20.0-32)
[2018-07-17] MEDS: DEXTROSE 5%-SOD CHLORIDE 0.2% 1,000 ML IV SCH (05:30)
--- NOTE | 2018-07-17 06:00 | NUR ---
Behaviors Patient pulled IV out of left forearm. Attempting to pull all tubes and lines. When trying to redirect and reposition patient. Patient began hitting staff members. Will attempt behavior modification with low light low stimuli environment.
--- NOTE | 2018-07-17 06:45 | NUR ---
RECEIVED REPORT AND PATIENT NOTIFIED.
--- NOTE | 2018-07-17 06:51 | CNH ---
DATE OF CONSULTATION: 07/15/2018 CHIEF COMPLAINT: Atrial fibrillation with rapid ventricular response. PRIMARY PHYSICIAN: Hospitalist, Dr. Jacques. HISTORY OF PRESENT ILLNESS: The patient is a 67-year-old white male with history of Parkinson's disease, dementia, hypothyroidism, has been in a shelter, has got also schizophrenia and bipolar disorder and has been on psychotropic medications and he fell and hurt his forehead and he was brought in with atrial fibrillation, rapid ventricular response, presently on amiodarone drip and consultation sought for an evaluation. He is very much agitated and requires restraints and has suffered a scalp injury on the right forehead; not much other history is available. ALLERGIES: None known. MEDICATIONS: He is on Depakote, fluphenazine, Benadryl, benztropine. PAST MEDICAL HISTORY: History of Parkinson's disease, schizophrenia, COPD, bipolar disorder, dementia, has also underlying hypertension and hypertensive heart disease. SOCIAL HISTORY: Prior history of significant smoking, quit smoking over a year ago. No history of any ethanol abuse, no use of any illicit drugs. FAMILY HISTORY: Not much available. PHYSICAL EXAMINATION: GENERAL: The patient is 177 cm, 69 kg, BMI 21.9 and had restraints and was not oriented to time, place, and person. Poor general hygiene. HEENT: Unremarkable with a bruise on his right forehead and had some swelling on the forehead where he fell. He was not much communicative. VITAL SIGNS: His heart rate was about 150, blood pressure 170/100, respiration 20. NECK: JVD was discernible about 7-8 cm over the angle of Gilberto. No carotid bruits. LUNGS: Showing poor air entry bilaterally with no adventitious sound and picture consistent with COPD. HEART: Sounds S1 and S2, irregular. No obvious murmurs were audible. ABDOMEN: Soft. EXTREMITIES: Distal pulses poorly felt and no dependent edema was noted. NEUROLOGIC: He was moving all extremities. LABORATORY DATA: Had shown from 07/14/2018 a normal white count and hemoglobin of 16.3, hematocrit was 49.3. His platelets were 109,000, which had come to 89,000 and his chemistries were showing a BUN of 42, creatinine 1.22 and 153 sodium which came down to 148. He was probably dehydrated. His SGOT, SGPT were mildly elevated and his BNP was 5305 and INR was 1.6. The patient is not on any anticoagulation. Urine cultures sent, no growth noted. DIAGNOSTIC DATA: His chest x-ray showed unremarkable without any infiltrate and his head CT was done because he had a fall, showed diffuse atrophy, advanced age. No acute intracranial findings. EKG was showing atrial fibrillation with rapid ventricular response, left ventricular hypertrophy by voltage criterion, LAFB, diffuse ST-T wave changes, underlying ischemia cannot be fully excluded. Echo showed global hypokinesis, limited study with 30-32% ejection fraction, biatrial enlargement and mild mitral regurgitation and tricuspid regurgitation. IMPRESSION: Hypertension, hypertensive heart disease, atrial fibrillation with rapid ventricular response, underlying coronary artery disease cannot be fully excluded, chronic obstructive pulmonary disease status, Parkinson's, schizophrenia and bipolar disorder. PLAN: At this time, we will continue amiodarone drip and will start him on Coreg 6.25 mg twice a day and losartan along with Aldactone and Aldactone will be started later on, but at the present time, we will continue losartan and amiodarone, and his platelet count is low, may start him on Eliquis at a later point and will add Seroquel 100 mg once a day for his bipolar disorder and may initiate him on Sinemet. Further management will depend on the clinical course. Thank you very much for this consultation. Mac Fernandez MD DR: BLOSSOM/samanta JOB# [id number]
[2018-07-17] MEDS: ALDACTONE PO SCH (07:50)
[2018-07-17] MEDS: ALTACE PO SCH (07:51)
[2018-07-17] MEDS: CORDARONE PO SCH (07:51)
[2018-07-17] MEDS: MAG-OX PO SCH ×2 (07:51→20:40)
[2018-07-17] MEDS: DEPAKOTE EC PO SCH ×3 (07:51→20:40)
[2018-07-17] MEDS: SINEMET 25/100 PO SCH ×2 (07:52→20:40)
[2018-07-17] MEDS: SEROQUEL PO SCH (07:52)
[2018-07-17] MEDS: COREG PO SCH ×2 (07:52→20:40)
[2018-07-17] MEDS: PROTONIX PO SCH (07:52)
[2018-07-17] MEDS: ELIQUIS PO SCH ×2 (07:52→20:41)
--- NOTE | 2018-07-17 08:10 | NUR ---
AM MEDICATION GIVEN EARLY D/T BP 170/113 HR 110 PATIENT WAS AGITATED AND RESTLESS. PATIENT REPOSITION IN BED. RESTRAINTS RELEASE, CIRCULATION CHECKED, AND REAPPLIED. PATIENT ATTEMPTED TO REORIENT TO LOCATION AND SITUATION UNSUCCESSFUL.
[2018-07-17] MEDS: APRESOLINE IV PRN (08:38)
[2018-07-17] MEDS ORDERED: ALTACE PO SCH (09:00)
--- NOTE | 2018-07-17 09:10 | NUR ---
DR. CARVAJAL AT BEDSIDE ASSESSING PATIENT. NO NEW ORDERS AT THIS TIME.
--- NOTE | 2018-07-17 09:16 | NUR ---
PATIENT RESTING QUIETLY IN BED. RESPIRATION EVEN AND UNLABORED.
--- NOTE | 2018-07-17 11:47 | CNH ---
DATE OF CONSULTATION: 07/15/2018 LIMITED ECHO STUDY A 67-year-old, atrial fibrillation on 07/15/2018. PRIMARY PHYSICIAN: Dr. Jacques. The patient was very restless and difficult to obtain an echo and improper posturing. Hence, a very limited study with subcostal views showing that the left ventricle seem to be top normal size with severe global hypokinesis with mitral annular calcification and ejection fraction was approximately about 30% with biatrial enlargement and some mitral regurgitation was noted. We will probably repeat the echo later when the patient is more stable and is cooperative, but the picture is consistent of atrial fibrillation with loss of A waves along with picture consistent with cardiomyopathy, etiology not clear, underlying CAD is to be entertained. Mac Fernandez MD DR: BLOSSOM/samanta JOB# [id number]
--- NOTE | 2018-07-17 11:49 | PRM.PN ---
Progress Note Subjective Date: Jul 17, 2018 Physician Notes: Pt keeps doing slightly better. His HR is <100 and BP is stable. He still confused most of the time but I believe this might be very close to his baseline. So far no family member presented. Objective Review IO, Exams,& Results Problems Acute/Active Problems: (1) Dementia with behavioral disturbance (2) UTI (urinary tract infection) Vital Signs Date Time Temp Pulse Resp B/P (MAP) Pulse Ox O2 Delivery O2 Flow Rate FiO2 07/17/18 09:00 85/64 07/17/18 08:43 121 18 100 Room Air 21 07/16/18 19:30 97.8 97.8 Intake and Output 07/17/18 07:01 Intake Total 2656 ml Output Total 750 ml Balance 1906 ml Intake Oral 840 ml Electrolyte Solution 1816 ml Output Urine Total 750 ml Laboratory Tests Test 07/16/18 04:45 07/16/18 09:54 07/16/18 12:00 07/17/18 04:52 White Blood Count 8.3 10^3/uL 8.4 10^3/uL Red Blood Count 4.85 10^6/uL 4.85 10^6/uL Hemoglobin 15.0 g/dL 15.1 g/dL Hematocrit 44.5 % 44.4 % Mean Corpuscular Volume 91.8 fL 91.5 fL Mean Corpuscular Hemoglobin 30.9 pg 31.1 pg Mean Corpuscular Hemoglobin Concent 33.7 g/dL 34.0 g/dL Red Cell Distribution Width 14.6 % 14.7 % Platelet Count 89 10^3/uL 105 10^3/uL Mean Platelet Volume 10.2 fL 10.1 fL Neutrophils (%) (Auto) 70.6 % 68.7 % Lymphocytes (%) (Auto) 11.4 % 14.1 % Monocytes (%) (Auto) 17.0 % 15.7 % Neutrophils # (Auto) 5.9 10^3/uL 5.8 10^3/uL Lymphocytes # (Auto) 1.0 10^3/uL 1.2 10^3/uL Monocytes # (Auto) 1.4 10^3/uL 1.3 10^3/uL Absolute Immature Granulocyte (auto 0.03 10^3 u/L 0.03 10^3 u/L Eosinophils % 0.2 % 0.7 % Basophils % 0.4 % 0.4 % Basophils # 0.0 10^3/uL 0.0 10^3/uL Eosinophil Count 0.0 10^3/uL 0.1 10^3/uL Sodium Level 149 mmol/L 146 mmol/L Potassium Level 3.5 mmol/L 3.7 mmol/L Chloride Level 115.0 mmol/L 113.0 mmol/L Carbon Dioxide Level 25.3 mmol/L 26.5 mmol/L Glucose Level 102 mg/dL 124 mg/dL Blood Urea Nitrogen 30 mg/dL 32 mg/dL Creatinine 1.00 mg/dL 1.10 mg/dL Calcium Level 8.8 mg/dL 8.9 mg/dL Anion Gap 12.2 10.2 Estimated GFR () 90.2 80.8 BUN/Creatinine Ratio 30.0 29.0 Percent Immature Gran (Cell Imm) 0.40 % 0.40 % Prothrombin Time 13.2 SEC Prothrombin Time INR (Non-Therap) 1.3 Urine Collection Type VOID Urine Color BROCK Urine Appearance CLEAR Urine Bilirubin 3 MG/DL Urine Ketones NEGATIVE Urine Specific [place] 1.010 Urine pH 6 Urine Protein 30 mg/dL Urine Urobilinogen 12.0 Urine Nitrate NEGATIVE Urine Leukocyte Esterase 100/ul 1+ Urine Blood 50 2+ Urine RBC 5-10 RBC/HPF Urine WBC 5-10 WBC/HPF Urine Squamous Epithelial Cells FEW #/HPF Urine Bacteria RARE Urine Glucose NORMAL Magnesium Level 1.8 mg/dL Total Bilirubin 4.0 mg/dL Aspartate Amino Transf (AST/SGOT) 45 U/L Alanine Aminotransferase (ALT/SGPT) 12 U/L Alkaline Phosphatase 74 U/L Pro-B-Type Natriuretic Peptide 3856 pg/mL Total Protein 7.0 g/dL Albumin 2.8 g/dL Globulin 4.2 Current Medications Medications (Trade) Dose Ordered Sig/Sherry PRN Reason Start Time Stop Time Status Last Admin Amiodarone HCl (Cordarone) 200 mg BID 07/16/18 21:00 08/15/18 20:59 07/17/18 07:51 Atorvastatin Calcium (Lipitor) 40 mg HS 07/15/18 21:00 08/14/18 20:59 07/16/18 21:08 Carbidopa/Levodopa (Sinemet 25/100) 1 each BID 07/16/18 21:00 08/15/18 20:59 07/17/18 07:52 Carvedilol (Coreg) 12.5 mg BID 07/16/18 21:00 08/15/18 20:59 07/17/18 07:52 Divalproex Sodium (Depakote Ec) 250 mg TID 07/16/18 21:00 08/15/18 20:59 07/17/18 07:51 Haloperidol (Haldol) 4 mg HS 07/17/18 21:00 08/16/18 20:59 Haloperidol Lactate (Haldol) 10 mg Q8HR PRN AGITATION 07/15/18 10:30 08/14/18 10:29 07/17/18 11:10 Hydralazine HCl (Apresoline) 10 mg Q2 PRN HYPERTENSION 07/15/18 18:30 08/14/18 18:29 07/17/18 08:38 Labetalol HCl (Trandate) 20 mg Q6 PRN HYPERTENSION 07/14/18 21:00 08/13/18 20:59 07/16/18 15:48 Magnesium Oxide (Mag-Ox) 400 mg BID 07/16/18 21:00 08/15/18 20:59 07/17/18 07:51 Non-Formulary Medication FLUPHENAZINE 5 MG PO BID BID 07/17/18 21:00 08/16/18 20:59 Pantoprazole Sodium (Protonix) 40 mg DAILY 07/16/18 09:00 08/15/18 08:59 07/17/18 07:52 Quetiapine Fumarate (Seroquel) 150 mg DAILY 07/17/18 09:00 08/16/18 08:59 07/17/18 07:52 Ramipril (Altace) 20 mg DAILY 07/17/18 09:00 08/16/18 08:59 Spironolactone (Aldactone) 12.5 mg DAILY 07/16/18 09:00 08/15/18 08:59 07/17/18 07:50 Orders - NOLVIA CARVAJAL MD Insert Ng Tube (07/15/18 14:55) Dextrose 5 %-0.2 % Sod Chlorid (Dextrose (07/16/18 09:30) Urine Culture (07/16/18 12:00) Divalproex Sodium (Depakote Ec) (07/16/18 21:00) Ramipril (Altace) (07/17/18 09:00) Haloperidol (Haldol) (07/17/18 21:00) Non-Formulary Medication (07/17/18 21:00) Cbc With Auto Diff (07/18/18 05:00) Comprehensive Metabolic Panel (07/18/18 05:00) Heart: No murmurs, Other (Irregularly irregular heart beat) Abdomen: Soft Lungs: Clear to auscultation Assessment & Plan: Assessment (1) Atrial fibrillation with RVR Status: Acute ICD Code: I48.91 - Unspecified atrial fibrillation SNOMED: 828506779691859 (2) Hypernatremia Status: Acute ICD Code: E87.0 - Hyperosmolality and hypernatremia SNOMED: 91466825 (3) Parkinson disease Status: Chronic ICD Code: G20 - Parkinson's disease SNOMED: 40136740 (4) Dementia with behavioral disturbance Status: Acute ICD Code: F03.91 - Unspecified dementia with behavioral disturbance SNOMED: 4703063112243 (5) Bipolar 1 disorder Status: Chronic ICD Code: F31.9 - Bipolar disorder, unspecified SNOMED: 025545680 (6) CHF systolic EF 30% on echo today Plans: -Pt mentation slightly improved. -Na came down to 146. -Echo showed LVEF 30%, started CHF meds per cardiology -Started Eliquis from 07/16. -HR better controlled and most of time <100. -Pt prognosis is guarded given severe CHF. NOLVIA CARVAJAL MD Jul 17, 2018 11:49
--- NOTE | 2018-07-17 18:40 | NUR ---
REPORT RECEIVED FROM RENE YOUNG RN. ASSUMED PT CARE
--- NOTE | 2018-07-17 19:31 | NUR ---
MOBILITY LEVEL EXCLUDED DUE TO UNSTABLE ARRHYTHMIA PT IS IN AFIB IN THE 100'S
[2018-07-17] MEDS: NON-FORMULARY MEDICATION 1 EA EA PO SCH (20:41)
[2018-07-17] MEDS ORDERED: HALDOL PO SCH (21:00)
--- NOTE | 2018-07-17 21:58 | NUR ---
BOWEL MOVEMENT: PT HAD A BOWEL MOVEMENT IN BED. PT CLEANED AND CHG BATH DONE WITH WIPES. BED LINEN CHANGED. ORAL CARE DONE. PT TOLERATED WELL. PT LAYING IN BED ON RIGHT SIDE. BED IN LOW POSITION AND LOCKED WITH HOB ELEVATED. SIDE RAILS UP X2. CALL LIGHT AND TABLE WITHIN REACH. WILL CONTINUE TO MONITOR.
[2018-07-18] VITALS (96 sets, daily range): BP systolic 80–166; BP diastolic 37–101
[2018-07-18] MEDS: DEXTROSE 5%-SOD CHLORIDE 0.2% 1,000 ML IV SCH ×2 (01:30→18:19)
--- NOTE | 2018-07-18 05:10 | NUR ---
BATTERY WRECKER OPERATOR AT BEDSIDE FOR BLOOD DRAW.
[2018-07-18 05:53] LABS: BASOPHIL % 0.4 % (0.0-0.2); EOSINOPHIL # 0.1 10^3/uL (0.0-0.2); EOSINOPHIL % 1.7 % (0.0-5.0); HEMOGLOBIN 15.1 g/dL (13.9-16.3); LYMPHOCYTES # 1.2 10^3/uL (1.0-4.8); LYMPHOCYTES % 14.9 % (24.0-44.0); MEAN CELL HGB 30.8 pg (26-34); MEAN CELL HGB CONCENTRATION 34.1 g/dL (33-37); MEAN CORP VOLUME 90.4 fL (78-100); MEAN PLATELET VOLUME 10.4 fL (7.8-11.0); MONOCYTES # 1.1 10^3/uL (0.3-0.8); MONOCYTES % 13.5 % (5.0-12.0); NEUTROPHIL # 5.6 10^3/uL (1.8-7.7); RED CELL DISTRIBUTION WIDTH 14.5 % (11.5-14.5); WHITE BLOOD CELL 8.1 10^3/uL (4.5-11.0)
[2018-07-18 06:24] LABS: CARBON DIOXIDE 27.3 mmol/L (20.0-32)
--- NOTE | 2018-07-18 06:40 | NUR ---
Report received from HARPAL Schwartz and [facility] care.
--- NOTE | 2018-07-18 06:45 | NUR ---
REPORT TO ONCOMING SHIFT. PT CARE RELINQUISHED.
--- NOTE | 2018-07-18 07:00 | NUR ---
MOBILITY LEVEL PATIENT IS EXCLUDED DUE TO UNSTABLE ARRHYTHMIA PT IS IN AFIB IN THE 100'S
--- NOTE | 2018-07-18 07:30 | NUR ---
As per report received, patient only slept for a total of an hour for the past 12 hours. Patient didn't get enough sleep in the last 36 hours.
[2018-07-18] MEDS ORDERED: ALTACE ONE (07:44)
[2018-07-18] MEDS: NON-FORMULARY MEDICATION 1 EA EA PO SCH ×2 (08:26→20:52)
[2018-07-18] MEDS: ALDACTONE PO SCH (08:30)
[2018-07-18] MEDS: ALTACE PO SCH (08:31)
[2018-07-18] MEDS: PROTONIX PO SCH (08:32)
[2018-07-18] MEDS: COREG PO SCH ×2 (08:32→20:51)
[2018-07-18] MEDS: MAG-OX PO SCH ×2 (08:33→20:51)
[2018-07-18] MEDS: ELIQUIS PO SCH ×2 (08:33→20:51)
[2018-07-18] MEDS: DEPAKOTE EC PO SCH ×3 (08:34→20:51)
[2018-07-18] MEDS: SEROQUEL PO SCH (08:34)
[2018-07-18] MEDS: SINEMET 25/100 PO SCH ×2 (08:35→20:51)
--- NOTE | 2018-07-18 08:54 | NUR ---
PATIENT REPOSITION IN BED. RESTRAINTS RELEASE, CIRCULATION CHECKED, AND REAPPLIED. PATIENT ATTEMPTED TO REORIENT TO LOCATION AND SITUATION UNSUCCESSFUL.
--- NOTE | 2018-07-18 09:30 | NUR ---
PATIENT RESTING QUIETLY IN BED. RESPIRATION EVEN AND UNLABORED.
--- NOTE | 2018-07-18 10:50 | NUR ---
RAD at bedside for CXR 2V.
--- NOTE | 2018-07-18 11:13 | DIREP ---
PROCEDURE:CHEST 2 VIEWS COMPARISON:None. INDICATIONS:chf FINDINGS: LUNGS/PLEURA:Mild senescent interstitial prominence. Small pleural effusions seen posteriorly, only on the lateral view. VASCULATURE:Normal. Unremarkable pulmonary vasculature. CARDIAC:Normal. No cardiac silhouette abnormality or cardiomegaly. MEDIASTINUM:Normal. No visible mass or adenopathy. BONES:Normal. No fracture or visible bony lesion. OTHER:Negative. CONCLUSION:Small dependent posterior pleural effusion, seen only on the lateral view Dictated by: Cesar Nix M.D. on 07/18/2018 at 11:10 AM
--- NOTE | 2018-07-18 11:40 | NUR ---
Dr. Jacques at bedside. Assess the patient. New order received. Increase IVF rate from 50 ml/hr to 75 ml/hr. Patient stay one more day in ICU.
--- NOTE | 2018-07-18 11:43 | NUR ---
Notified Dr. Jacques that patient's urine output is low. He will order Lasix later this afternoon since IVF rate was just increase to 75 ml/hr.
--- NOTE | 2018-07-18 11:55 | NUR ---
Dr. Fernandez at bedside. Assess the patient. New order received. CMP now. RBAV.
--- NOTE | 2018-07-18 12:10 | NUR ---
Lab at bedside to draw blood.
--- NOTE | 2018-07-18 12:30 | PRM.PN ---
Progress Note Subjective Date: Jul 17, 2018 Objective Review IO, Exams,& Results Problems Acute/Active Problems: (1) Dementia with behavioral disturbance (2) UTI (urinary tract infection) Vital Signs Date Time Temp Pulse Resp B/P (MAP) Pulse Ox O2 Delivery O2 Flow Rate FiO2 07/18/18 11:00 92 11 129/61 (83) 100 07/18/18 07:39 Room Air 07/18/18 07:00 97.6 97.6 07/17/18 18:03 21 Intake and Output 07/18/18 07:01 Intake Total 1892 ml Output Total 500 ml Balance 1392 ml Intake Oral 710 ml Electrolyte Solution 1182 ml Output Urine Total 500 ml Laboratory Tests Test 07/17/18 04:52 07/18/18 05:14 White Blood Count 8.4 10^3/uL 8.1 10^3/uL Red Blood Count 4.85 10^6/uL 4.90 10^6/uL Hemoglobin 15.1 g/dL 15.1 g/dL Hematocrit 44.4 % 44.3 % Mean Corpuscular Volume 91.5 fL 90.4 fL Mean Corpuscular Hemoglobin 31.1 pg 30.8 pg Mean Corpuscular Hemoglobin Concent 34.0 g/dL 34.1 g/dL Red Cell Distribution Width 14.7 % 14.5 % Platelet Count 105 10^3/uL 100 10^3/uL Mean Platelet Volume 10.1 fL 10.4 fL Neutrophils (%) (Auto) 68.7 % 69.0 % Lymphocytes (%) (Auto) 14.1 % 14.9 % Monocytes (%) (Auto) 15.7 % 13.5 % Neutrophils # (Auto) 5.8 10^3/uL 5.6 10^3/uL Lymphocytes # (Auto) 1.2 10^3/uL 1.2 10^3/uL Monocytes # (Auto) 1.3 10^3/uL 1.1 10^3/uL Absolute Immature Granulocyte (auto 0.03 10^3 u/L 0.04 10^3 u/L Eosinophils % 0.7 % 1.7 % Basophils % 0.4 % 0.4 % Basophils # 0.0 10^3/uL 0.0 10^3/uL Eosinophil Count 0.1 10^3/uL 0.1 10^3/uL Sodium Level 146 mmol/L 145 mmol/L Potassium Level 3.7 mmol/L 4.2 mmol/L Chloride Level 113.0 mmol/L 111.0 mmol/L Carbon Dioxide Level 26.5 mmol/L 27.3 mmol/L Anion Gap 10.2 10.9 Blood Urea Nitrogen 32 mg/dL 30 mg/dL Creatinine 1.10 mg/dL 0.91 mg/dL Estimated GFR () 80.8 100.6 BUN/Creatinine Ratio 29.0 32.0 Glucose Level 124 mg/dL 120 mg/dL Calcium Level 8.9 mg/dL 9.0 mg/dL Magnesium Level 1.8 mg/dL Total Bilirubin 4.0 mg/dL 3.1 mg/dL Aspartate Amino Transf (AST/SGOT) 45 U/L 49 U/L Alanine Aminotransferase (ALT/SGPT) 12 U/L 7 U/L Alkaline Phosphatase 74 U/L 77 U/L Pro-B-Type Natriuretic Peptide 3856 pg/mL Total Protein 7.0 g/dL 6.7 g/dL Albumin 2.8 g/dL 2.6 g/dL Globulin 4.2 4.1 Percent Immature Gran (Cell Imm) 0.40 % 0.50 % Current Medications Medications (Trade) Dose Ordered Sig/Sherry PRN Reason Start Time Stop Time Status Last Admin Carbidopa/Levodopa (Sinemet 25/100) 1 each BID 07/16/18 21:00 08/15/18 20:59 07/18/18 08:35 Carvedilol (Coreg) 25 mg BID 07/17/18 21:00 08/16/18 20:59 07/18/18 08:32 Divalproex Sodium (Depakote Ec) 250 mg TID 07/16/18 21:00 08/15/18 20:59 07/18/18 08:34 Haloperidol (Haldol) 4 mg HS 07/18/18 21:00 08/16/18 20:59 Hydralazine HCl (Apresoline) 10 mg Q2 PRN HYPERTENSION 07/15/18 18:30 08/14/18 18:29 07/17/18 08:38 Magnesium Oxide (Mag-Ox) 400 mg BID 07/16/18 21:00 08/15/18 20:59 07/18/18 08:33 Non-Formulary Medication FLUPHENAZINE 5 MG PO BID BID 07/17/18 21:00 08/16/18 20:59 Pantoprazole Sodium (Protonix) 40 mg DAILY 07/16/18 09:00 08/15/18 08:59 07/18/18 08:32 Quetiapine Fumarate (Seroquel) 150 mg DAILY 07/17/18 09:00 08/16/18 08:59 07/18/18 08:34 Ramipril (Altace) 10 mg DAILY 07/18/18 09:00 08/17/18 08:59 07/18/18 08:31 Spironolactone (Aldactone) 12.5 mg DAILY 07/16/18 09:00 08/15/18 08:59 07/18/18 08:30 Orders - NOLVIA CARVAJAL MD Urine Culture (07/16/18 12:00) Divalproex Sodium (Depakote Ec) (07/16/18 21:00) Non-Formulary Medication (07/17/18 21:00) Ramipril (Altace) (07/18/18 09:00) Haloperidol (Haldol) (07/18/18 21:00) Heart: No murmurs, Other (Irregular ) Abdomen: Soft Lungs: Clear to auscultation Skin: No rashes Assessment & Plan: Assessment 1) Atrial fibrillation with RVR Status: Acute ICD Code: I48.91 - Unspecified atrial fibrillation SNOMED: 047162574394698 (2) Hypernatremia Status: Acute ICD Code: E87.0 - Hyperosmolality and hypernatremia SNOMED: 54968792 (3) Parkinson disease Status: Chronic ICD Code: G20 - Parkinson's disease SNOMED: 61785956 (4) Dementia with behavioral disturbance Status: Acute ICD Code: F03.91 - Unspecified dementia with behavioral disturbance SNOMED: 4150352074834 (5) Bipolar 1 disorder Status: Chronic ICD Code: F31.9 - Bipolar disorder, unspecified SNOMED: 777371484 (6) CHF systolic EF 30% on echo today Plans: -Pt mentation slightly improved. -Na came down to 145. -Echo showed LVEF 30%, started CHF meds per cardiology -Started Eliquis from 07/16. -HR better controlled and most of time <100. -Pt prognosis is guarded given severe CHF. NOLVIA CARVAJAL MD Jul 18, 2018 12:30
--- NOTE | 2018-07-18 12:30 | NUR ---
Checked patient's temperature axillary, resulted to 95.8, place a rectal probe, resulted to 93.[address] patient on 2 kriss hugger using the flex warming gown and covered with [address] booties on patient's feet. 1258 - restraint removed completely. 1311- Notified Dr. Jacques regarding patient's temperature. Temperature is up to 94.1 1313 -Dr. Jacques instructed to cover the patient and he will check the TSH in the morning lab.
[2018-07-18 12:36] LABS: CALCIUM 8.7 mg/dL (8.4-10.5); CARBON DIOXIDE 23.6 mmol/L (20.0-32)
--- NOTE | 2018-07-18 13:41 | NUR ---
Notified Dr. Jacques that patient's blood pressure at 88/45 (64). Order received to continue to observe the patient.
--- NOTE | 2018-07-18 14:14 | NUR ---
Notified Dr. Jacques that patient blood pressure stays in the 80's/40's. Patient is unarousable even to painful stimuli. Left pupil is sluggish and no motor response. Addendum: 07/18/18 at 1506 by Maryanne Quinn RN - BOOK REPAIRER Entered in error:No motor response Correct entry: withdraws to pain
--- NOTE | 2018-07-18 14:17 | NUR ---
Dr. Jacques at bedside. Bolus 250 ml NS within 15 minutes. Ordered Ammonia, CBC, CMP, Mag and TSH for 07/19/18 at 0500.
[2018-07-18] MEDS ORDERED: NS 250ML 250 ML IV ONE ×3 (14:19→15:00)
--- NOTE | 2018-07-18 15:15 | NUR ---
Patient's temperature is now at 97.5, kriss hugger on standby. Patient started moving his hands and feet. Eye open to voice, move his arms to the side and move his leg. Blood pressure at 92/47 (70).
--- NOTE | 2018-07-18 17:38 | NUR ---
Dr. Jacques in the unit. Checked on patient's status. Update given. No new order at this time.
--- NOTE | 2018-07-18 18:40 | NUR ---
Bedside report given to incoming shift nurses and relinquished care.
[2018-07-18] MEDS: HALDOL PO SCH (20:50)
--- NOTE | 2018-07-18 22:00 | NUR ---
SPONGE BATH PATIENT BATHED WITH CHG WIPES AND GOWN AND LINENS CHANGED. NO S/S OF DISTRESS NOTED AND BED IS LOCKED IN LOW POSITION WITH SIDE RAILS UP X3. CALL LIGHT IS WITHIN REACH AND PATIENT DENIES ANY NEEDS AT THIS TIME.
[2018-07-19] VITALS (74 sets, daily range): BP systolic 80–159; BP diastolic 36–101
--- NOTE | 2018-07-19 00:03 | PNH ---
DATE: 07/15/2018 SUBJECTIVE: The patient is a 67-year-old gentleman for whom I was consulted with atrial fibrillation with rapid ventricular response and had significant confusion, disorientation and he has underlying history of psychiatric disorder, dementia and schizophrenia and he was very agitated, belligerent and significant hypertension and he was given IV amiodarone. His atrial fibrillation rate control was achieved, but he never converted and subsequently started on anticoagulants. At the present time, he seems to be more alert. He is swallowing his oral medications. Blood pressure is improving. Objectively, his output last 24 hours was 930 mL and positive balance of 447. OBJECTIVE: VITAL SIGNS: Showed a pulse of 100 to 110, atrial fibrillation; 170/100 blood pressure, which improved after giving hydralazine. NECK: No JVD. LUNGS: Clear. HEART: Sounds normal. NEUROLOGICAL: Confusion, disorientation, significant dementia noted. No lateralizing motor deficit noted. LABORATORY DATA: CBC was normal. Chemistries showed BUN of 32, creatinine 1.13, 0.7 potassium, and bilirubin elevation of 4 was documented today compared to the other day and this is concerning. Magnesium is 1.8. ProBNP decreased from 5305 to 3858. His limited echo study showed a 30% ejection fraction with cardiomyopathy and underlying ischemic cardiomyopathy is a concern, needs to be evaluated for coronary artery disease. Urine showed no growth, and at the present time, he is improved, but his general condition is poor with multisystem problems. IMPRESSION: Atrial fibrillation, acute on chronic systolic heart failure, cardiomyopathy, rule out ischemic cardiomyopathy, hypertension, hypertensive heart disease, labile hypertension, dementia, has clinical manifestations of Parkinson disease also and because of bilirubin elevation may stop his amiodarone and increase his Coreg and continue same optimized medical therapy. Laxmichand MD Rebecca DR: BLOSSOM/samanta JOB# [id number]
--- NOTE | 2018-07-19 02:35 | NUR ---
BRUNER CATHETER PATIENT'S RESTRAINTS WERE REMOVED AT 0130 AND PATIENT REMOVED BRUNER CATHETER. NEW BRUNER CATHETER INSERTED AND LINENS AND PAD CHANGED. RESTRAINTS REINITIATED FOR PATIENT SAFETY.
--- NOTE | 2018-07-19 05:10 | NUR ---
LAB MARKETING EDUCATION TEACHER AT BEDSIDE FOR BLOOD DRAW.
[2018-07-19 05:40] LABS: BASOPHIL % 0.3 % (0.0-0.2); EOSINOPHIL # 0.1 10^3/uL (0.0-0.2); EOSINOPHIL % 1.4 % (0.0-5.0); HEMOGLOBIN 14.3 g/dL (13.9-16.3); LYMPHOCYTES # 1.3 10^3/uL (1.0-4.8); LYMPHOCYTES % 17.3 % (24.0-44.0); MEAN CELL HGB 30.9 pg (26-34); MEAN CELL HGB CONCENTRATION 34.4 g/dL (33-37); MEAN CORP VOLUME 89.8 fL (78-100); MEAN PLATELET VOLUME 10.6 fL (7.8-11.0); MONOCYTES # 1.1 10^3/uL (0.3-0.8); MONOCYTES % 14.6 % (5.0-12.0); NEUTROPHIL # 5.1 10^3/uL (1.8-7.7); NEUTROPHILS % 66.1 % (41.0-85.0); RED CELL DISTRIBUTION WIDTH 14.4 % (11.5-14.5); WHITE BLOOD CELL 7.8 10^3/uL (4.5-11.0)
[2018-07-19 06:36] LABS: CALCIUM 8.5 mg/dL (8.4-10.5); CARBON DIOXIDE 26.3 mmol/L (20.0-32)
--- NOTE | 2018-07-19 06:40 | NUR ---
Report received from HARPAL Doss and assumed care.
--- NOTE | 2018-07-19 07:00 | NUR ---
MOBILITY LEVEL PATIENT IS EXCLUDED DUE TO UNSTABLE ARRHYTHMIA PT IS IN AFIB IN THE s.
--- NOTE | 2018-07-19 07:10 | NUR ---
Reposition the patient and place kriss hugger on the patient with temperature of 95.8
--- NOTE | 2018-07-19 08:00 | NUR ---
PATIENT RESTING QUIETLY IN BED. RESPIRATION EVEN AND UNLABORED. As per report received, patient barely get any sleep in the last 12 hours.
[2018-07-19] MEDS: DEXTROSE 5%-SOD CHLORIDE 0.2% 1,000 ML IV SCH ×2 (08:15→21:37)
[2018-07-19] MEDS ORDERED: MAGNESIUM SULFATE 50 ML IV ONE (09:00)
[2018-07-19] MEDS: ALTACE PO SCH (09:00)
[2018-07-19] MEDS: NON-FORMULARY MEDICATION 1 EA EA PO SCH ×2 (09:00→21:00)
[2018-07-19] MEDS: MAG-OX PO SCH ×2 (09:05→21:36)
[2018-07-19] MEDS: PROTONIX PO SCH (09:05)
[2018-07-19] MEDS: ELIQUIS PO SCH ×2 (09:05→21:36)
[2018-07-19] MEDS: ALDACTONE PO SCH (09:06)
[2018-07-19] MEDS: COREG PO SCH ×2 (09:21→21:36)
[2018-07-19] MEDS: SEROQUEL PO SCH (09:21)
[2018-07-19] MEDS: SINEMET 25/100 PO SCH ×2 (09:23→21:36)
[2018-07-19] MEDS: DEPAKOTE EC PO SCH ×3 (09:23→21:36)
--- NOTE | 2018-07-19 09:30 | NUR ---
Dr. Jacques at bedside. Assess the patient. New order received. Patient for transfer to medical surgical floor later this afternoon.
--- NOTE | 2018-07-19 11:00 | NUR ---
Remove kriss hugger and patient's temperature at 98.5
--- NOTE | 2018-07-19 11:18 | PRM.PN ---
Progress Note Subjective Date: Jul 17, 2018 Physician Notes: Pt is doing OK. His mentation has significantly improved to close to his baseline. He even told me he was OK when I asked . He could only mumble and did not make any sense before. plan to down grade him to Telemetry. Objective Review IO, Exams,& Results Problems Acute/Active Problems: (1) Dementia with behavioral disturbance (2) UTI (urinary tract infection) Vital Signs Date Time Temp Pulse Resp B/P (MAP) Pulse Ox O2 Delivery O2 Flow Rate FiO2 07/19/18 09:21 88 103/63 07/19/18 08:36 21 97 Room Air 21 07/19/18 07:31 95.8 95.8 Intake and Output 07/19/18 07:01 Intake Total 2406 ml Output Total 525 ml Balance 1881 ml Intake Oral 480 ml Electrolyte Solution 1926 ml Output Urine Total 525 ml Laboratory Tests Test 07/18/18 05:14 07/18/18 12:15 07/19/18 05:30 White Blood Count 8.1 10^3/uL 7.8 10^3/uL Red Blood Count 4.90 10^6/uL 4.63 10^6/uL Hemoglobin 15.1 g/dL 14.3 g/dL Hematocrit 44.3 % 41.6 % Mean Corpuscular Volume 90.4 fL 89.8 fL Mean Corpuscular Hemoglobin 30.8 pg 30.9 pg Mean Corpuscular Hemoglobin Concent 34.1 g/dL 34.4 g/dL Red Cell Distribution Width 14.5 % 14.4 % Platelet Count 100 10^3/uL 102 10^3/uL Mean Platelet Volume 10.4 fL 10.6 fL Neutrophils (%) (Auto) 69.0 % 66.1 % Lymphocytes (%) (Auto) 14.9 % 17.3 % Monocytes (%) (Auto) 13.5 % 14.6 % Neutrophils # (Auto) 5.6 10^3/uL 5.1 10^3/uL Lymphocytes # (Auto) 1.2 10^3/uL 1.3 10^3/uL Monocytes # (Auto) 1.1 10^3/uL 1.1 10^3/uL Absolute Immature Granulocyte (auto 0.04 10^3 u/L 0.02 10^3 u/L Eosinophils % 1.7 % 1.4 % Basophils % 0.4 % 0.3 % Basophils # 0.0 10^3/uL 0.0 10^3/uL Eosinophil Count 0.1 10^3/uL 0.1 10^3/uL Sodium Level 145 mmol/L 143 mmol/L 142 mmol/L Potassium Level 4.2 mmol/L 4.1 mmol/L 3.9 mmol/L Chloride Level 111.0 mmol/L 110.0 mmol/L 109.0 mmol/L Carbon Dioxide Level 27.3 mmol/L 23.6 mmol/L 26.3 mmol/L Anion Gap 10.9 13.5 10.6 Blood Urea Nitrogen 30 mg/dL 30 mg/dL 28 mg/dL Creatinine 0.91 mg/dL 0.82 mg/dL 0.92 mg/dL Estimated GFR () 100.6 113.4 99.3 BUN/Creatinine Ratio 32.0 36.0 30.0 Glucose Level 120 mg/dL 124 mg/dL 112 mg/dL Calcium Level 9.0 mg/dL 8.7 mg/dL 8.5 mg/dL Total Bilirubin 3.1 mg/dL 2.7 mg/dL 2.1 mg/dL Aspartate Amino Transf (AST/SGOT) 49 U/L 47 U/L 45 U/L Alanine Aminotransferase (ALT/SGPT) 7 U/L 6 U/L 11 U/L Alkaline Phosphatase 77 U/L 77 U/L 79 U/L Total Protein 6.7 g/dL 6.7 g/dL 6.4 g/dL Albumin 2.6 g/dL 2.3 g/dL 2.4 g/dL Globulin 4.1 4.4 4.0 Percent Immature Gran (Cell Imm) 0.50 % 0.30 % Magnesium Level 1.6 mg/dL Ammonia 14 umol/L Thyroid Stimulating Hormone (TSH) 5.588 mIU/mL Free Thyroxine 1.37 ng/dL Free Triiodothyronine (T3) Index 1.33 Current Medications Medications (Trade) Dose Ordered Sig/Sherry PRN Reason Start Time Stop Time Status Last Admin Carbidopa/Levodopa (Sinemet 25/100) 1 each BID 07/16/18 21:00 08/15/18 20:59 07/19/18 09:23 Carvedilol (Coreg) 25 mg BID 07/17/18 21:00 08/16/18 20:59 07/19/18 09:21 Divalproex Sodium (Depakote Ec) 250 mg TID 07/16/18 21:00 08/15/18 20:59 07/19/18 09:23 Haloperidol (Haldol) 4 mg HS 07/18/18 21:00 08/16/18 20:59 07/18/18 20:50 Magnesium Oxide (Mag-Ox) 400 mg BID 07/16/18 21:00 08/15/18 20:59 07/19/18 09:05 Non-Formulary Medication FLUPHENAZINE 5 MG PO BID BID 07/17/18 21:00 08/16/18 20:59 Quetiapine Fumarate (Seroquel) 150 mg DAILY 07/17/18 09:00 08/16/18 08:59 07/19/18 09:21 Ramipril (Altace) 10 mg DAILY 07/18/18 09:00 08/17/18 08:59 07/18/18 08:31 Orders - NOLVIA CARVAJAL MD Ramipril (Altace) (07/18/18 09:00) Haloperidol (Haldol) (07/18/18 21:00) Comprehensive Metabolic Panel (07/19/18 05:00) Magnesium (07/19/18 05:00) Thyroid Panel W Tsh(Ml) (07/19/18 05:00) Dysphagia Clinical Education Coordinator Alter Lvl2 (07/19/18 Lunch) Cbc With Auto Diff (07/20/18 05:00) Comprehensive Metabolic Panel (07/20/18 05:00) Magnesium (07/20/18 05:00) Heart: No murmurs, Other (Irregular ) Abdomen: Soft Lungs: Clear to auscultation Skin: No rashes Assessment & Plan: Assessment 1) Atrial fibrillation with RVR Status: Acute ICD Code: I48.91 - Unspecified atrial fibrillation SNOMED: 756053095207261 (2) Hypernatremia Status: Acute ICD Code: E87.0 - Hyperosmolality and hypernatremia SNOMED: 91571316 (3) Parkinson disease Status: Chronic ICD Code: G20 - Parkinson's disease SNOMED: 35003206 (4) Dementia with behavioral disturbance Status: Acute ICD Code: F03.91 - Unspecified dementia with behavioral disturbance SNOMED: 0963470645857 (5) Bipolar 1 disorder Status: Chronic ICD Code: F31.9 - Bipolar disorder, unspecified SNOMED: 340462591 (6) CHF systolic EF 30% on echo Plans: -Pt mentation slightly improved. -Na came down to 142. -Echo showed LVEF 30%, started CHF meds per cardiology -Started Eliquis from 07/16. -HR better controlled and most of time <100. -Pt prognosis is guarded given severe CHF. NOLVIA CARVAJAL MD Jul 19, 2018 11:18
--- NOTE | 2018-07-19 18:40 | NUR ---
Patient transported to [facility] room 341 via ICU bed on 2 point soft wrist [facility] with SPO2 at 99%, report given to MARY Reyez and relinquished care.
--- NOTE | 2018-07-19 18:45 | NUR ---
RECEIVED PT TO UNIT VIA BED, TRANSFERRED TO MED/SURG BED ASSIST X3. PT IS COMBATIVE , RESTRAINTS ARE SECURED TO BILATERAL WRISTS. RECEIVED REPORT FROM ICU NURSE
--- NOTE | 2018-07-19 21:04 | NUR ---
RT AT BEDSIDE O2 SAT 95% PULSE 84 NO S/S OF DISTRESSED OBSERVED
[2018-07-19] MEDS ORDERED: HALDOL ONE (21:30)
[2018-07-19] MEDS: HALDOL PO SCH (21:35)
--- NOTE | 2018-07-19 21:36 | NUR ---
SCHEDULED MEDS CRUSHED AND GIVEN WITH APPLESAUCE, NO S/S OF DISTRESS OBSERVED. ONE TO ONE NURSE AT BEDSIDE
[2018-07-19] MEDS: HALDOL IV PRN (22:36)
--- NOTE | 2018-07-19 22:38 | NUR ---
HALDOL 5MG IV GIVEN PER PRN ORDER,
[2018-07-20] VITALS (7 sets, daily range): BP systolic 96–144; BP diastolic 10–83
[2018-07-20] MEDS: HALDOL IV PRN (00:23)
--- NOTE | 2018-07-20 00:25 | NUR ---
THE OTHER 5MG OF PRN HALDOL PRN ORDER GIVEN AT THIS TIME
--- NOTE | 2018-07-20 01:06 | NUR ---
PT REPOSITIONED IN BED AT THIS TIME
--- NOTE | 2018-07-20 04:54 | NUR ---
LAB AT BEDSIDE
[2018-07-20 05:10] LABS: BASOPHIL % 0.4 % (0.0-0.2); EOSINOPHIL # 0.3 10^3/uL (0.0-0.2); EOSINOPHIL % 3.7 % (0.0-5.0); HEMOGLOBIN 13.7 g/dL (13.9-16.3); LYMPHOCYTES # 1.3 10^3/uL (1.0-4.8); LYMPHOCYTES % 18.9 % (24.0-44.0); MEAN CELL HGB 31.1 pg (26-34); MEAN CELL HGB CONCENTRATION 34.5 g/dL (33-37); MEAN PLATELET VOLUME 10.2 fL (7.8-11.0); MONOCYTES # 1.2 10^3/uL (0.3-0.8); MONOCYTES % 17.3 % (5.0-12.0); NEUTROPHIL # 4.1 10^3/uL (1.8-7.7); NEUTROPHILS % 59.1 % (41.0-85.0); RED CELL DISTRIBUTION WIDTH 14.6 % (11.5-14.5); WHITE BLOOD CELL 6.8 10^3/uL (4.5-11.0)
[2018-07-20 05:31] LABS: CALCIUM 8.3 mg/dL (8.4-10.5); CARBON DIOXIDE 24.8 mmol/L (20.0-32)
--- NOTE | 2018-07-20 06:47 | NUR ---
REPORT REPORT RECEIVED. PT LYING IN BED AWAKE. SPEECH UNCLEAR AT TIMES. DIFFICULTIES MAKING SELF UNDERSTOOD. NO S/S OF DISTRESS NOTED. WRIST RESTRAINTS NOTED TO BOTH WRIST. CAP REFILL < 3 SEC. RADIAL PULSES PALPABLE. PT ANXIOUS AND AGITATED AT TIMES. ABLE TO SOOTHE.
--- NOTE | 2018-07-20 07:55 | NUR ---
PT IN BED ASLEEP. RESP EVEN AND NON LABORED. NO S/S OF DISTRESS NOTED
--- NOTE | 2018-07-20 08:20 | NUR ---
PRODUCTIVE COUGH NOTED. UNABLE TO SPIT UP PHLEGM. SUCTION OFFERED AND ACCEPTED. PT SUCTIONED AT THIS TIME
[2018-07-20] MEDS: SEROQUEL PO SCH (08:27)
[2018-07-20] MEDS: PROTONIX PO SCH (08:27)
[2018-07-20] MEDS: ELIQUIS PO SCH ×2 (08:27→20:29)
[2018-07-20] MEDS: ALDACTONE PO SCH (08:27)
[2018-07-20] MEDS: SINEMET 25/100 PO SCH ×2 (08:27→20:29)
[2018-07-20] MEDS: MAG-OX PO SCH ×2 (08:27→20:29)
[2018-07-20] MEDS: DEPAKOTE EC PO SCH ×3 (08:27→20:29)
[2018-07-20] MEDS: NON-FORMULARY MEDICATION 1 EA EA PO SCH ×2 (08:28→20:31)
[2018-07-20] MEDS: COREG PO SCH ×2 (08:28→20:30)
[2018-07-20] MEDS: ALTACE PO SCH (08:28)
--- NOTE | 2018-07-20 08:45 | NUR ---
PT IN BED EATING BREAKFAST. MEDS GIVEN CRUSHED IN APPLESAUCE WITHOUT DIFFICULTIES. PT ATE LESS THAN 25% WITHOUT DIFFICULTIES. REFUSED TO EAT MORE. STATES "NO, NO, NO, IM NOT HUNGRY". OFFERED PT A BOOST. DRANK 100% WITHOUT DIFFICULTIES.
--- NOTE | 2018-07-20 08:50 | NUR ---
PERICARE PROVIDED BY STAFF. PT AGITATED AND COMBATIVE WHEN PROVIDING CARE. ABLE TO SOOTHE AFTER MULTIPLE ATTEMPTS TO EXPLAIN PROCEDURE TO PT.
--- NOTE | 2018-07-20 09:07 | NUR ---
DR KELLY AT BEDSIDE. DR NOTIFIED OF PITTING EDEMA NOTED TO BILATERAL WRISTS
--- NOTE | 2018-07-20 09:20 | NUR ---
PT SUCTIONED AT THIS TIME
--- NOTE | 2018-07-20 09:30 | NUR ---
SPOKE WITH [facility] TO OBTAIN PT BASELINE AND ACCURATE MED LIST. NOTIFIED. NEW ORDERS RECEIVED TO REMOVE RESTRAINTS TO GET PT OUT OF BED AND WALKING. NEW ORDERS RECEIVED TO F[employer] BRUNER
--- NOTE | 2018-07-20 09:35 | NUR ---
RT AT BEDSIDE. NO S/S OF DISTRESS NOTED AT THIS TIME
--- NOTE | 2018-07-20 09:47 | NUR ---
BRUNER CATHETER DC EXPLAINED PROCEDURE TO PT. PT AGITATED AND ANXIOUS AT THIS TIME. EXPLAINED PROCEDURE MULTIPLE TIMES. PT VERBALIZES UNDERSTANDING OF PROCEDURE. BRUNER CATHETER DCd WITHOUT COMPLICATIONS. DTV AT 1747. NO C/O OF PAIN. NO FACIAL GRIMACING NOTED
--- NOTE | 2018-07-20 10:05 | NUR ---
PT IN BED AWAKE. RESTLESS AND AGITATED. THIS NURSE EXPLAINED TO PT THAT IT WAS TIME TO DC RESTRAINTS SO PT CAN AMBULATE IN HALLWAY. ATTEMPTED TO CALM PT BEFORE REMOVAL OF RESTRAINTS. PT ABLE TO SOOTHE. RESTRAINTS REMOVED AT THIS TIME. CAP REFILL < 3 SECONDS. RADIAL PULSES PRESENT. 1+ PITTING EDEMA NOTED TO BILATERAL WRISTS. NO BRUISING OR SKIN ISSUES NOTED TO WRISTS.
--- NOTE | 2018-07-20 10:08 | NUR ---
ATTEMPTED TO AMBULATE PT WITH X2 ASSISTANCE USING A WALKER. 5 STEPS TAKEN IN ROOM. UNSTEADY GAIT NOTED. PT THEN BEGAN TO COLLAPSE TO FLOOR. ASSISTED TO WHEELCHAIR BEFORE LANDING ON FLOOR. NO INJURIES AT THIS TIME. TRANSPORTED PT AROUND UNIT VIA WHEELCHAIR. PT CALM AND RELAXED AT THIS TIME.
[2018-07-20] MEDS: DEXTROSE 5%-SOD CHLORIDE 0.2% 1,000 ML IV SCH ×2 (10:19→23:39)
--- NOTE | 2018-07-20 10:20 | NUR ---
TRANSFERRED FROM WHEELCHAIR TO CHAIR WITH X2 EXTENSIVE ASSISTANCE. DIFFICULTY TRANSFERRING NOTED. ABLE TO STAND. UNABLE TO TURN WITH ASSISTANCE. PT IN CHAIR, CALM AND RELAXED. BLE AND BUE ELEVATED.
--- NOTE | 2018-07-20 11:32 | NUR ---
PT IN CHAIR SLEEPING. RESP EVEN AND NON LABORED. NO S/S OF DISTRESS NOTED AT THIS TIME
--- NOTE | 2018-07-20 12:04 | NUR ---
TEMP 94.4 AX BP 96/54. PT ASLEEP BUT RESPONDS TO STIMULI. PLACED ON A BEAR HUGGER. TEMP NOW 96.[address] MORENO NOTIFIED OF VS AND INTERVENTION INITIATED
--- NOTE | 2018-07-20 12:15 | NUR ---
ATTEMPTED TO ASSIST PT WITH FEEDING. PT REFUSED TO EAT AND SAID "NO, NO, NO". OFFERED A BOOST AND REFUSED. PT NOW ASLEEP. RESP EVEN AND NON LABORED
--- NOTE | 2018-07-20 13:13 | NUR ---
NOTIFIED DR MORENO OF PT REFUSAL TO EAT LUNCH
--- NOTE | 2018-07-20 14:37 | NUR ---
SUCTIONED AND PERFORMED ORAL CARE AT THIS TIME
[2018-07-20] MEDS ORDERED: CARV12.5 PO (16:16)
[2018-07-20] MEDS ORDERED: APIX2.5T PO (16:16)
[2018-07-20] MEDS ORDERED: Ipratropium/Albuterol Sulfate IH (16:16)
[2018-07-20] MEDS ORDERED: QUET100T4 PO (16:16)
--- NOTE | 2018-07-20 18:43 | PRM.PN ---
Progress Note Subjective Date: Jul 17, 2018 Physician Notes: Difficult to understand but without complaints. Appears comfortable. Denies pain. Objective Review IO, Exams,& Results Problems Acute/Active Problems: (1) Dementia with behavioral disturbance (2) UTI (urinary tract infection) Vital Signs Date Time Temp Pulse Resp B/P (MAP) Pulse Ox O2 Delivery O2 Flow Rate FiO2 07/20/18 15:46 97.3 63 18 116/72 (87) 97 Room Air 97.3 07/19/18 08:36 21 Intake and Output 07/20/18 07:01 Intake Total 2035 ml Output Total 500 ml Balance 1535 ml Intake Oral 340 ml Electrolyte Solution 695 ml IV Total 1000 ml Output Urine Total 500 ml Laboratory Tests Test 07/19/18 05:30 07/20/18 05:00 White Blood Count 7.8 10^3/uL 6.8 10^3/uL Red Blood Count 4.63 10^6/uL 4.41 10^6/uL Hemoglobin 14.3 g/dL 13.7 g/dL Hematocrit 41.6 % 39.7 % Mean Corpuscular Volume 89.8 fL 90.0 fL Mean Corpuscular Hemoglobin 30.9 pg 31.1 pg Mean Corpuscular Hemoglobin Concent 34.4 g/dL 34.5 g/dL Red Cell Distribution Width 14.4 % 14.6 % Platelet Count 102 10^3/uL 102 10^3/uL Mean Platelet Volume 10.6 fL 10.2 fL Neutrophils (%) (Auto) 66.1 % 59.1 % Lymphocytes (%) (Auto) 17.3 % 18.9 % Monocytes (%) (Auto) 14.6 % 17.3 % Neutrophils # (Auto) 5.1 10^3/uL 4.1 10^3/uL Lymphocytes # (Auto) 1.3 10^3/uL 1.3 10^3/uL Monocytes # (Auto) 1.1 10^3/uL 1.2 10^3/uL Absolute Immature Granulocyte (auto 0.02 10^3 u/L 0.04 10^3 u/L Eosinophils % 1.4 % 3.7 % Basophils % 0.3 % 0.4 % Basophils # 0.0 10^3/uL 0.0 10^3/uL Eosinophil Count 0.1 10^3/uL 0.3 10^3/uL Sodium Level 142 mmol/L 141 mmol/L Potassium Level 3.9 mmol/L 3.8 mmol/L Chloride Level 109.0 mmol/L 107.0 mmol/L Carbon Dioxide Level 26.3 mmol/L 24.8 mmol/L Anion Gap 10.6 13.0 Blood Urea Nitrogen 28 mg/dL 23 mg/dL Creatinine 0.92 mg/dL 0.93 mg/dL Estimated GFR () 99.3 98.1 BUN/Creatinine Ratio 30.0 24.0 Glucose Level 112 mg/dL 97 mg/dL Calcium Level 8.5 mg/dL 8.3 mg/dL Magnesium Level 1.6 mg/dL 1.8 mg/dL Total Bilirubin 2.1 mg/dL 1.7 mg/dL Aspartate Amino Transf (AST/SGOT) 45 U/L 36 U/L Alanine Aminotransferase (ALT/SGPT) 11 U/L 7 U/L Alkaline Phosphatase 79 U/L 80 U/L Ammonia 14 umol/L Total Protein 6.4 g/dL 6.4 g/dL Albumin 2.4 g/dL 2.3 g/dL Globulin 4.0 4.1 Thyroid Stimulating Hormone (TSH) 5.588 mIU/mL Free Thyroxine 1.37 ng/dL Free Triiodothyronine (T3) Index 1.33 Percent Immature Gran (Cell Imm) 0.30 % 0.60 % Current Medications Medications (Trade) Dose Ordered Sig/Sherry PRN Reason Start Time Stop Time Status Last Admin Carvedilol (Coreg) 25 mg BID 07/17/18 21:00 08/16/18 20:59 07/20/18 08:28 Haloperidol (Haldol) 4 mg HS 07/18/18 21:00 08/16/18 20:59 07/19/18 21:35 Non-Formulary Medication FLUPHENAZINE 5 MG PO BID BID 07/17/18 21:00 08/16/18 20:59 Ramipril (Altace) 10 mg DAILY 07/18/18 09:00 08/17/18 08:59 07/20/18 08:28 Orders - SHEYLA MORENO MD, Dc (07/20/18 09:31) Out Of Bed To Ambulate (07/20/18 09:31) Dysphagia Pureed Level 1 (07/20/18 Dinner) Discharge (07/20/18 16:09) Heart: Normal S1, Normal S2, No murmurs, Other (Irregular ) Abdomen: Normal bowel sounds, Soft Lungs: Clear to auscultation Skin: No rashes Assessment & Plan: Problems/Diagnosis: (1) UTI (urinary tract infection) ICD Code: N39.0 - Urinary tract infection, site not specified SNOMED: 73436918 Status: Acute Assessment & Plan: STable. No new problems. Will pull beach in AM and see if we can dc (2) Dementia with behavioral disturbance Was this Present on Admission?: YES ICD Code: F03.91 - Unspecified dementia with behavioral disturbance SNOMED: 2938820110476 Status: Chronic Assessment & Plan: Appears to be at baseline. (3) Hypernatremia ICD Code: E87.0 - Hyperosmolality and hypernatremia SNOMED: 66924930 Status: Acute Assessment & Plan: Back to normal. Will recheck in AM. (4) Parkinson disease ICD Code: G20 - Parkinson's disease SNOMED: 85147341 Status: Chronic Assessment & Plan: At baseline. (5) Bipolar 1 disorder ICD Code: F31.9 - Bipolar disorder, unspecified SNOMED: 448445320 Status: Chronic Assessment & Plan: At baseline. Hopefully back to SNF. Problem Qualifiers (1) UTI (urinary tract infection): Urinary tract infection type: acute cystitis Hematuria presence: without hematuria Qualified Codes: N30.00 - Acute cystitis without hematuria (2) Dementia with behavioral disturbance: Dementia type: Parkinson's disease Qualified Codes: G20 - Parkinson's disease ; F02.81 - Dementia in other diseases classified elsewhere with behavioral disturbance SHEYLA MORENO MD Jul 20, 2018 18:43
--- NOTE | 2018-07-20 18:51 | NUR ---
Report Received report from Argenis Zarate LVN
--- NOTE | 2018-07-20 18:52 | NUR ---
Patient resting in bed with eyes closed. Resp even and non labored. No s/s of distress noted at this time. Will continue to monitor.
--- NOTE | 2018-07-20 19:00 | NUR ---
PT HAS NOT VOIDED AFTER BRUNER REMOVAL. NOTIFIED DR MORENO OF I/O AND SWELLING TO BUE. BLADDER SCANNED. 100CC NOTED. DR NOTIFIED. NEW ORDERS TO SALINE LOCK IV. DR MORENO STATED TO MONITOR FOR BLADDER DISTENTION AND NOT TO REPLACE BRUNER
--- NOTE | 2018-07-20 20:23 | NUR ---
Patient continues to rest in bed with eyes closed. Resp even and non labored. No s/s of distress noted at this time. Will continue to monitor.. Patient remains on 1:1
[2018-07-20] MEDS ORDERED: HALDOL ONE (20:24)
[2018-07-20] MEDS: HALDOL PO SCH (20:29)
--- NOTE | 2018-07-20 20:45 | NUR ---
Administered 2100 meds crushed with applesauce. Patient cooperated with med administration . Patient now laying in bed with eyes closed. Rep even an non labored. No s/s of distress noted at this time. Patient remains 1:1
--- NOTE | 2018-07-20 21:31 | NUR ---
Patient awake in bed. Restless and rambling unknown words.
[2018-07-21 00:51] VITALS: BP 135/79
--- NOTE | 2018-07-21 01:21 | NUR ---
Patient restimg in bed with eyes closed. Resp even and non labored. No s/sof distreaa noted at this time. Patient remains 1:1
--- NOTE | 2018-07-21 01:43 | PNH ---
DATE: 07/20/2018 SUBJECTIVE: The patient is in a wheelchair. PT has been ordered . OBJECTIVE: VITAL SIGNS: Obviously stable, 97 temperature, pulse 67, respirations 20, 140/80 blood pressure, 95 saturation. HEENT: Unremarkable. LUNGS: Clear. HEART: Sounds normal. LABORATORY DATA: Shows 6.8 white count, 13.7 hemoglobin. His chemistries are all normal. BUN is 23, creatinine 0.93 and his bilirubin is down to 1.7. Liver functions have improved. Amiodarone was stopped because of abnormal liver functions and magnesium is 1.8, low protein, low albumin. Last chest x-ray on 07/18/2018, no significant infiltration noted. IMPRESSION: Hypertension, hypertensive heart disease, atrial fibrillation, liver function test abnormality, higher mental dysfunction with confusion, disorientation and bipolar disorder. PLAN: At this time, continue same optimized medical therapy, can go to chronic care facility. Mac Fernandez MD DR: BLOSSOM/samanta JOB# [id number]
[2018-07-21 04:49] VITALS: BP 132/72
--- NOTE | 2018-07-21 05:09 | NUR ---
Lab in to draw labs. Patient refused lab draw and yelling at Lab teck. Lab will attempt to draw at later time
--- NOTE | 2018-07-21 05:36 | NUR ---
Patient sitting up in bed rambling. Patient remains 1:1
--- NOTE | 2018-07-21 06:20 | NUR ---
Patient continues to ramble. No s/s of distress noted. Patient remains 1:1
[2018-07-21 06:50] VITALS: BP 134/82
[2018-07-21 07:39] LABS: MEAN CELL HGB 31.3 pg (26-34); MEAN CELL HGB CONCENTRATION 34.5 g/dL (33-37); MEAN CORP VOLUME 90.6 fL (78-100); MEAN PLATELET VOLUME 11.1 fL (7.8-11.0); RED CELL DISTRIBUTION WIDTH 14.9 % (11.5-14.5); WHITE BLOOD CELL 6.7 10^3/uL (4.5-11.0)
[2018-07-21 07:56] LABS: CALCIUM 8.3 mg/dL (8.4-10.5); CARBON DIOXIDE 27.7 mmol/L (20.0-32)
[2018-07-21 08:26] LABS: THYROXINE (T4) TOTAL(LCI) 7.6 ug/dL (4.5-12.0)
[2018-07-21] MEDS: MAG-OX PO SCH (08:48)
[2018-07-21] MEDS: DEPAKOTE EC PO SCH (08:48)
[2018-07-21] MEDS: ALTACE PO SCH (08:48)
[2018-07-21] MEDS: COREG PO SCH (08:48)
[2018-07-21] MEDS: SINEMET 25/100 PO SCH (08:49)
[2018-07-21] MEDS: ELIQUIS PO SCH (08:49)
[2018-07-21] MEDS: SEROQUEL PO SCH (08:49)
[2018-07-21] MEDS: PROTONIX PO SCH (08:52)
[2018-07-21] MEDS: ALDACTONE PO SCH (08:52)
[2018-07-21] MEDS: NON-FORMULARY MEDICATION 1 EA EA PO SCH (08:52)
--- NOTE | 2018-07-21 09:10 | PNH ---
DATE: 07/18/2018 SUBJECTIVE: The patient is doing much better. His confusion and disorientation is noted and ____ appears to be Parkinson's disease along with some schizophrenia, bipolar disorder, atrial fibrillation, hypertension, hypertensive heart disease. Bilirubin has improved from 4 to 2. OBJECTIVE: VITAL SIGNS: Stable. LUNGS: Clear. HEART: Sounds normal, atrial fibrillation, controlled ventricular response, on anticoagulation, tolerating well. Continue same optimized medical therapy. Toñohand MD Rebecca DR: BLOSSOM/samanta JOB# [id number]
[2018-07-21 11:38] VITALS: BP 134/82
--- NOTE | 2018-07-21 11:54 | NUR ---
REPORT REPORT CALLED TO Leoncio IRIZARRY LVN AT [facility]. PT DAVID CASTRO W/C WITH FEI CARDOZA.
--- NOTE | 2018-07-22 04:43 | DSH ---
DATE OF DISCHARGE: 07/21/2018 ADMITTING DIAGNOSES: 1. Dementia with behavioral disturbance. 2. Atrial fibrillation with rapid ventricular response. 3. Hypernatremia. 4. Parkinson's disease. 5. Bipolar 1 disorder. DISCHARGE DIAGNOSES: 1. Urinary tract infection with altered loss of consciousness. 2. Dementia with behavioral disturbance. 3. Hypernatremia. 4. Parkinson's disease. 5. Bipolar 1 disorder. DISCHARGE MEDICATIONS: Resume the patient's previous home medications. DISCHARGE DISPOSITION: [facility]. HOSPITAL COURSE: This is a 67-year-old male with a history of dementia and Parkinson's disease, who came in after a fall at jail. Once in the Emergency Department, it was felt that he was more confused than at baseline. He was found to have atrial fibrillation with RVR with a rate of 130s and was placed on amiodarone drip. When he was initially seen, his mentation was very poor and he was not communicating. His sodium level was found to be 152 and he was started on IV fluids. The patient had initially been admitted to the Intensive Care Unit while on the amiodarone drip. His heart rate was well controlled on the drip and he was able to be discharged. Echocardiogram was performed and stable. The patient's course continued to slowly improve with mental status slowly improving over the next several days. On 07/20/2018, the patient was seen and communicating much more, although somewhat dysarthric, which is his baseline. Chest x-ray was performed and stable. Cardiology was also consulted and followed the patient while in house. He had minimal difficulties with urination on 07/20/2018 and it was felt more prudent to keep a Gómez catheter in the patient for several more days. His laboratory evaluation on 07/21/2018 was stable CBC. His chemistry was significantly improved from admission. The patient was felt to be back to baseline and had no complaints. He was discharged back to jail facility on 07/21/2018. He should have followup with his primary care provider that follows him at the jail facility. Joe Davis MD DR: SHANTELLE/samanta JOB# [id number]
== END 2018-07-21 11:40 | DRG 308 ==
LOC: ER 07:26 → EDSEX 10:04 → ICU 10:04 → MS 07-19 18:40 → EDPENDDISDT 07-21 11:50 → EDPENDDISTM 07-21 11:50
PROVIDERS: ADMIT Internal Medicine; ATTEND Internal Medicine
DX: I48.91 Unspecified atrial fibrillation (principal); E43 Unspecified severe protein-calorie malnutrition; I50.23 Acute on chronic systolic (congestive) heart failure; N30.00 Acute cystitis without hematuria; E87.0 Hyperosmolality and hypernatremia; F02.81 Dementia in other diseases classified elsewhere, unspecified severity, with behavioral disturbance; I11.0 Hypertensive heart disease with heart failure; I42.9 Cardiomyopathy, unspecified; F31.9 Bipolar disorder, unspecified; S01.81XA Laceration without foreign body of other part of head, initial encounter; E03.9 Hypothyroidism, unspecified; F20.9 Schizophrenia, unspecified; G20 Parkinson's disease; I25.10 Atherosclerotic heart disease of native coronary artery without angina pectoris; J44.9 Chronic obstructive pulmonary disease, unspecified; W18.39XA Other fall on same level, initial encounter; Z66 Do not resuscitate; Z78.1 Physical restraint status; Z87.891 Personal history of nicotine dependence; Z68.23 Body mass index [BMI] 23.0-23.9, adult; Y93.89 Activity, other specified; Y92.128 Other place in nursing home as the place of occurrence of the external cause; Y99.8 Other external cause status
CPT/HCPCS: 36415; 70450; 71045; 71046; 80048; 80053; 81000; 82140; 82550; 83735; 83880; 84436; 84439; 84443; 84484; 85025; 85027; 85610; 85730; 87086; 93005; 93321; 99285; A4338; G0378; J0282; J0360; J0696; J1160; J1650; J2060; J3475; J3490; J7030; J7050; J7120; J7620; A4216; J1630

== ENCOUNTER 2018-07-25 01:51 | Emergency (ER) | payer MEDICARE, MEDICAID ==
[~2018-07-25] VITALS: Ht 177.8 cm; Wt 68.0 kg
[~2018-07-25 01:51] MED LIST changes: +ACET500T73 PO; +APIX2.5T PO; +BISO1TAB44 PO; +CARV12.5 PO; +FLUP5TAB PO; +HALO100A3 IM; +HALO10TA PO; +Ipratropium/Albuterol Sulfate IH; +LISI-410 PO; +LOPE2CAP94 PO; +LORA10TA3 PO; +LORA1TAB PO; +QUET100T4 PO
--- NOTE | 2018-07-25 01:53 | NUR ---
CT PATIENT TO CT UPON ARRIVAL
--- NOTE | 2018-07-25 02:05 | ER.PDOC ---
General Chief Complaint: Requesting Medical Care Stated Complaint: FALL Time seen by MD: 01:50 Source: EMS, RN notes reviewed Exam Limitations: no limitations History of Present Illness Initial Comments Pt brought by EMS from [facility] where he fell and injurred his head, since then he has been non verbal, acting unusual for him, also grabbing his right hip and thigh Occurred: just prior to arrival Where: other ([facility]) Severity: severe Location: frontal Method of Injury: fell Allergies: Coded Allergies: No Known Allergies (Unverified , 07/14/18) Home Meds Active Scripts Quetiapine Fumarate (SEROQUEL) 100 Mg Tablet, 150 MG PO DAILY for 30 Days, #30 TABLET Prov:SHEYLA MORENO MD 07/20/18 Carvedilol 12.5MG (COREG 12.MG) 12.5 Mg Tablet, 25 MG PO BID for 30 Days, #30 TABLET Prov:SHEYAL MORENO MD 07/20/18 Apixaban (Eliquis) 2.5 Mg Tablet, 2.5 MG PO BID for 30 Days, #30 TABLET Prov:SHEYLA MORENO MD 07/20/18 [Ipratropium/Albuterol Sulfate] 3 ML AMPUL.NEB No Conflict Check, 3 ML IH Q8 PRN for COPD for 30 Days, #30 Prov:SHEYLA MORENO MD 07/20/18 Reported Medications Calcium Carbonate/Vitamin D3 (CALCIUM + VITAMIN D TABLET) 1 Each Tablet, 1 EACH PO DAILY24, TABLET 07/25/18 Loperamide HCl (Imodium A-D) 2 Mg Capsule, 2 MG PO PRN 07/14/18 Acetaminophen (ACETAMINOPHEN) 500 Mg Tablet, 1 TAB PO Q4, #60 TAB 1 Refill 07/14/18 Bisoprolol Fumarate/Hctz (ZIAC 2.5-6.25 MG TABLET) 1 Each Tablet, 1 TAB PO BID, #30 TAB 5 Refills 07/14/18 Lorazepam (LORAZEPAM) 1 Mg Tablet, 1 TAB PO BID, #60 TAB 07/14/18 Lisinopril (LISINOPRIL) 20 Mg Tablet, 1 TAB PO BID, #30 TAB 5 Refills 07/14/18 Haloperidol (HALOPERIDOL) 10 Mg Tablet, 2 TAB PO HS, #60 TAB 2 Refills 07/14/18 Haloperidol Decanoate (HALDOL DECANOATE 100) 100 Mg/1 Ml Ampul, 100 MG IM Q14D 07/14/18 Fluphenazine Hcl (FLUPHENAZINE HCL) 5 Mg Tablet, 1 TAB PO BID, #60 TAB 1 Refill 07/14/18 Divalproex Sodium (DEPAKOTE) 250 Mg Tablet.dr, 250 MG PO TID 07/14/18 Benztropine Mesylate (BENZTROPINE MESYLATE) 0.5 Mg Tablet, 1 TAB PO BID for Parkinson, #60 TAB 07/14/18 Discontinued Reported Medications Loratadine (LORATADINE) 10 Mg Tablet, 1 TAB PO ACD, #30 TAB 5 Refills 07/14/18 Fluticasone/Vilanterol (Breo Ellipta 100-25 Mcg INH) 1 Each Aer.pow.ba, 1 EACH IH PRN PRN for CONGESTION 07/14/18 Diphenhydramine Hcl (BENADRYL) 25 Mg Capsule, 1 CAP PO HS for allergic rhinitis , #30 CAP 1 Refill 07/14/18 Lorazepam (ATIVAN) 2 Mg/1 Ml Vial, 2 MG IJ PRN PRN for AGITATION, VIAL 07/14/18 Past Medical History Surgical History: other Social History Drug Use: none Review of Systems Constitutional: see HPI Eyes: no symptoms reported Ears, Nose, Mouth, Throat: no symptoms reported Respiratory: cough Cardiovascular: no symptoms reported Gastrointestinal: no symptoms reported Genitourinary: no symptoms reported Musculoskeletal: no symptoms reported Skin: see HPI Psychiatric/Neurological: see HPI Endocrine: no symptoms reported Hematologic/Lymphatic: no symptoms reported Physical Exam General Appearance: Lethargic, Mild Distress, Unresponsive Head: Contusions (right frontal area) Eye: PERRL, EOMI, No nystagmus ENT: Nml external inspection, Pharynx nml Neck: non-tender, painless ROM, trachea midline Cardiovascular/Respiratory: No JVD, Irregularly Irregular Gastrointestinal: Normal Bowel Sounds, No Organomegaly, No Pulsatile Mass, Non Tender, Soft Back: Normal Inspection, No CVA Tenderness, No Vertebral Tenderness Extremities: Other (tender right lower extremity) NEURO/PSYCH: No response to commands Cranial Nerves: Other (not tested) Skin: Normal Color, Warm/Dry Lymphatic: No Adenopathy Keily Coma Score Best Eye Response: (3) Open to Voice Best Verbal Response: (2)Incomprehensible Sound Best Motor Response: (5) Localizes to Pain [place] Total: 10 Results/Orders Results/Orders Laboratory Tests Test 07/25/18 02:20 White Blood Count 8.2 10^3/uL (4.5-11.0) Red Blood Count 4.57 10^6/uL (4.50-5.90) Hemoglobin 14.2 g/dL (13.9-16.3) Hematocrit 41.4 % (37.0-53.0) Mean Corpuscular Volume 90.6 fL (78-100) Mean Corpuscular Hemoglobin 31.1 pg (26-34) Mean Corpuscular Hemoglobin Concent 34.3 g/dL (33-37) Red Cell Distribution Width 15.3 % (11.5-14.5) Platelet Count 133 10^3/uL (150-400) Mean Platelet Volume 10.2 fL (7.8-11.0) Neutrophils (%) (Auto) 63.1 % (41.0-85.0) Lymphocytes (%) (Auto) 18.2 % (24.0-44.0) Monocytes (%) (Auto) 14.4 % (5.0-12.0) Neutrophils # (Auto) 5.2 10^3/uL (1.8-7.7) Lymphocytes # (Auto) 1.5 10^3/uL (1.0-4.8) Monocytes # (Auto) 1.2 10^3/uL (0.3-0.8) Absolute Immature Granulocyte (auto 0.06 10^3 u/L (0-2) Eosinophils % 3.4 % (0.0-5.0) Basophils % 0.2 % (0.0-0.2) Basophils # 0.0 10^3/uL (0.0-0.1) Eosinophil Count 0.3 10^3/uL (0.0-0.2) Prothrombin Time 13.6 SEC (9.8-11.9) Prothrombin Time INR (Non-Therap) 1.4 Activated Partial Thromboplast Time 33.3 SEC (24.67-30.72) Sodium Level 140 mmol/L (132-145) Potassium Level 4.2 mmol/L (3.6-5.2) Chloride Level 104.0 mmol/L (96-109) Carbon Dioxide Level 26.6 mmol/L (20.0-32) Anion Gap 13.6 Blood Urea Nitrogen 20 mg/dL (7-18) Creatinine 1.02 mg/dL (0.59-1.40) Estimated GFR () 88.1 (>/=60) BUN/Creatinine Ratio 19.0 Glucose Level 91 mg/dL (70-110) Calcium Level 9.1 mg/dL (8.4-10.5) Total Bilirubin 1.7 mg/dL (0.2-1.0) Aspartate Amino Transf (AST/SGOT) 26 U/L (0-35) Alanine Aminotransferase (ALT/SGPT) 20 U/L (12-78) Alkaline Phosphatase 101 U/L (50-136) Total Protein 7.1 g/dL (6.4-8.2) Albumin 2.5 g/dL (3.4-5.0) Globulin 4.6 Percent Immature Gran (Cell Imm) 0.70 % (0.00-0.50) Departure Time of Disposition: 02:45 Disposition: 01 HOME, SELF-CARE Impression: Primary Impression: Head injury Additional Impression: Altered mental status Condition: Stable Referrals: BELLE JONES (PCP) PRIMARY CARE PROVIDER Duration or Time Spent with Pa: 20 FARIBA CARVAJAL MD Jul 25, 2018 02:05
--- NOTE | 2018-07-25 02:15 | DIREP ---
PROCEDURE:CT HEAD OR BRAIN W/O CONTRAST COMPARISON:[facility], CT, CT HEAD BRAIN W/O CONTRAST, 07/14/2018, 07:35 AM. INDICATIONS:Head injury, AMS TECHNIQUE:CT images were created without intravenous contrast. FINDINGS: VENTRICLES:There is moderate prominence of the ventricles and cortical sulci consistent with age related involutional changes. CEREBRUM:Small foci of diminished attenuation in the supratentorial white matter consistent with mild leukoaraiosis. CEREBELLUM:Negative. BRAINSTEM:Negative. BASAL CISTERNS:Negative. HEMORRHAGE:No MASS LESION:No ACUTE INFARCT:No SKULL:Normal. SINUSES:Normal. OTHER:None CONCLUSION:Atrophy and white matter disease, similar to previous examination. No acute findings Dictated by: Mike Rodríguez MD on 07/25/2018 at 02:11 AM
[2018-07-25] MEDS ORDERED: CALC-101 PO (02:16)
[2018-07-25 02:26] LABS: BASOPHIL % 0.2 % (0.0-0.2); EOSINOPHIL # 0.3 10^3/uL (0.0-0.2); EOSINOPHIL % 3.4 % (0.0-5.0); HEMOGLOBIN 14.2 g/dL (13.9-16.3); LYMPHOCYTES # 1.5 10^3/uL (1.0-4.8); LYMPHOCYTES % 18.2 % (24.0-44.0); MEAN CELL HGB 31.1 pg (26-34); MEAN CELL HGB CONCENTRATION 34.3 g/dL (33-37); MEAN CORP VOLUME 90.6 fL (78-100); MEAN PLATELET VOLUME 10.2 fL (7.8-11.0); MONOCYTES # 1.2 10^3/uL (0.3-0.8); MONOCYTES % 14.4 % (5.0-12.0); NEUTROPHIL # 5.2 10^3/uL (1.8-7.7); NEUTROPHILS % 63.1 % (41.0-85.0); RED CELL DISTRIBUTION WIDTH 15.3 % (11.5-14.5); WHITE BLOOD CELL 8.2 10^3/uL (4.5-11.0)
--- NOTE | 2018-07-25 02:42 | DIREP ---
PROCEDURE:XRAY HIP 1 VW-RT COMPARISON:None. INDICATIONS:fall, pain FINDINGS: BONES:Status post open reduction internal fixation of the right hip. The head and neck are absent. There appears to be radiopaque material within, question antibiotic seeding. Visualized pelvis is intact JOINTS:Normal. SOFT TISSUES:Normal. OTHER:No additional findings. CONCLUSION:Hardware intact. No acute fractures identified however the femoral head and neck appear absent, with what appears to represent antibiotic laden material within. Dictated by: Mike Rodríguez MD on 07/25/2018 at 02:35 AM
[2018-07-25 02:43] LABS: CALCIUM 9.1 mg/dL (8.4-10.5); CARBON DIOXIDE 26.6 mmol/L (20.0-32)
--- NOTE | 2018-07-25 02:43 | DIREP ---
PROCEDURE:CHEST 1 VIEW COMPARISON:[facility], CR, XRAY CHEST 2 VWS, 07/18/2018, 09:54 AM. INDICATIONS:cough FINDINGS: LUNGS/PLEURA:No significant pulmonary parenchymal abnormalities. No effusions. VASCULATURE:Normal. Unremarkable pulmonary vasculature. CARDIAC:Normal. No cardiac silhouette abnormality or cardiomegaly. MEDIASTINUM:Normal. No visible mass or adenopathy. BONES:Normal. No fracture or visible bony lesion. OTHER:Negative. CONCLUSION:No acute disease. No significant change has occurred. Dictated by: Mike Rodríguez MD on 07/25/2018 at 02:40 AM
--- NOTE | 2018-07-25 02:50 | NUR ---
NURSE NOTE PATIENT RESTING IN ER ROOM 2 WITH EYES CLOSED AND RESPIRATIONS EVEN AND UNLABORED. VS WNL. BRUNER TO GRAVITY DRAINAGE. WILL CONTINUE TO MONITOR.
[2018-07-25 02:55] VITALS: BP 156/96
--- NOTE | 2018-07-25 03:10 | NUR ---
SNF CALLED SNF TO INFORM THAT PATIENT WAS BEING DISCHARGED. THEY WILL ORACLE ANALYST.
[2018-07-25 03:54] VITALS: BP 149/83
[2018-07-25 04:38] VITALS: BP 147/84
--- NOTE | 2018-07-25 04:50 | NUR ---
IV IV REMOVED CATHETER WAS ALL INTACT. PRESSURE HELD AND APPLIED COBAN DRESSING. NO FURTHER BLEEDING.
--- NOTE | 2018-07-25 04:55 | NUR ---
[facility] ARRIVED TO TRANSPORT PATIENT. REPORT GIVEN. PATIENT ASSISTED TO TRANSFER TO WHEELCHAIR.
[2018-07-25 05:03] VITALS: BP 147/84
[2018-07-28] MEDS ORDERED: LORA2VIA6 IM (21:52)
[2018-07-28] MEDS ORDERED: DIPH25CA57 PO (21:52)
[2018-07-28] MEDS ORDERED: HALO100A3 IM (21:52)
[2018-07-28] MEDS ORDERED: FLUT1AER IH (21:52)
[2018-07-28] MEDS ORDERED: LORA2TAB99 PO (21:52)
[2018-07-28] MEDS ORDERED: LORA10TA3 PO (21:52)
== END 2018-07-25 04:50 | disposition home or self-care (01) ==
LOC: EDBD 01:51 → ER 01:51
DX: S00.83XA Contusion of other part of head, initial encounter (principal); M25.551 Pain in right hip; M79.651 Pain in right thigh; R41.82 Altered mental status, unspecified; Z79.01 Long term (current) use of anticoagulants; Z79.899 Other long term (current) drug therapy; W19.XXXA Unspecified fall, initial encounter; Y93.89 Activity, other specified; Y92.128 Other place in nursing home as the place of occurrence of the external cause; Y99.8 Other external cause status
CPT/HCPCS: 36415; 70450; 71045; 73501; 80053; 85025; 85610; 85730; 99285; 73500-RT